=== PATIENT | male | born 1940 | race American Indian/Alaskan Native ===

== ENCOUNTER 2016-08-01 13:23 | Emergency (ER) | payer OTHER, MEDICARE ==
[2016-08-01] MEDS ORDERED: NACL 0.9% 1000 ML 1,000 ML IV ONE (14:04)
--- NOTE | 2016-08-01 14:21 | Emergency Department Report ---
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 Previous Visits for Alcohol Intoxication?: Yes Recent Trauma: Yes Associated Symptoms: denies: nausea, vomiting, syncope, seizure, diaphoresis, tremors, abdominal pain, hematemesis, melena, depression, suicidality Treatments Prior to Arrival: none - Related Data Previous Rx's Medication Instructions Recorded Last Taken Type amLODIPine [Norvasc] 10 mg PO DAILY #30 tab 05/09/14 Unknown Rx cloNIDine [Catapres] 0.1 mg PO BID #10 tablet 05/09/14 Unknown Rx methOCARBAMOL [Robaxin] 500 mg PO BID #14 tab 05/09/14 Unknown Rx traMADol [Ultram 50 MG tab] 50 mg PO Q6HR PRN #14 tablet 05/09/14 Unknown Rx Ibuprofen [Motrin 600 MG tab] 600 mg PO Q8H PRN #30 tablet 02/15/16 Unknown Rx Allergies Allergy/AdvReac Type Severity Reaction Status Date / Time No Known Allergies Allergy Unverified 05/09/14 10:04 ED Review of Systems ROS: Stated complaint: FALL/MOUTH INJURY Other details as noted in HPI Comment: Unobtainable due to pts medical conditions ED Past Medical Hx - Past Medical History Hx Hypertension: Yes Hx Arthritis: Yes - Surgical History Additional Surgical History: Blood Clot x 15 yrs right leg - Social History Smoking Status: Never Smoker Substance Use Type: Alcohol - Medications Home Medications: Home Medications Medication Instructions Recorded Confirmed Last Taken Type amLODIPine [Norvasc] 10 mg PO DAILY #30 tab 05/09/14 Unknown Rx cloNIDine [Catapres] 0.1 mg PO BID #10 tablet 05/09/14 Unknown Rx methOCARBAMOL [Robaxin] 500 mg PO BID #14 tab 05/09/14 Unknown Rx traMADol [Ultram 50 MG tab] 50 mg PO Q6HR PRN #14 tablet 05/09/14 Unknown Rx Ibuprofen [Motrin 600 MG tab] 600 mg PO Q8H PRN #30 tablet 02/15/16 Unknown Rx ED Physical Exam - General Limitations: Altered Mental Status General appearance: appears intoxicated - Head Head exam: Present: atraumatic, normocephalic - Eye Eye exam: Present: normal appearance - ENT ENT exam: Present: other (two missing incisor / minor bleeding in the mouth) - Neck Neck exam: Present: normal inspection - Respiratory Respiratory exam: Present: normal lung sounds bilaterally. Absent: respiratory distress - Cardiovascular Cardiovascular Exam: Present: regular rate, normal rhythm. Absent: systolic murmur, diastolic murmur, rubs, gallop - GI/Abdominal GI/Abdominal exam: Present: soft, normal bowel sounds - Rectal Rectal exam: Present: deferred - Extremities Exam Extremities exam: Present: normal inspection - Back Exam Back exam: Present: normal inspection - Neurological Exam Neurological exam: Present: altered - Skin Skin exam: Present: warm, dry, intact, normal color. Absent: rash ED Course Vital Signs 08/01/16 08/01/16 08/01/16 13:44 14:37 14:41 Temperature 98.2 F 98.4 F Pulse Rate 79 80 Respiratory 16 18 Rate Blood Pressure 139/80 Blood Pressure 140/80 [Left] O2 Sat by Pulse 95 99 97 Oximetry 08/01/16 18:44 Temperature 98.0 F Pulse Rate 78 Respiratory 16 Rate Blood Pressure Blood Pressure 152/80 [Left] O2 Sat by Pulse 100 Oximetry ED Medical Decision Making - Lab Data Result diagrams: 08/01/16 14:13 08/01/16 14:13 Critical care attestation.: If time is entered above; I have spent that time in minutes in the direct care of this critically ill patient, excluding procedure time. ED Disposition Clinical Impression: Alcohol abuse Disposition: DISCHARGED TO HOME OR SELFCARE Is pt being admited?: No Does the pt Need Aspirin: No Condition: Good Instructions: Alcohol Intoxication (ED) Referrals: PRIMARY CARE, [Primary Care Provider] - 3-5 Days Time of Disposition: 19:31
[2016-08-01 14:37] LABS: Basophils % (Auto) 0.7 % (0.0-1.8); Eosinophils % (Auto) 2.4 % (0.0-4.3); Hematocrit 43.8 % (35.5-45.6); Hemoglobin 14.3 gm/dl (11.8-15.2); Mean Corpuscular HGB Conc 33 % (32-34); Mean Corpuscular Hemoglobin 30 pg (28-32); Mean Corpuscular Volume 91 fl (84-94); Platelet Count 205 K/mm3 (140-440); Red Blood Count 4.84 M/mm3 (3.65-5.03); Red Cell Distribution Width 13.4 % (13.2-15.2); White Blood Count 6.8 K/mm3 (4.5-11.0)
[2016-08-01 14:43] LABS: Anion Gap 17 mmol/L; Blood Urea Nitrogen 14 mg/dL (9-20); Calcium 8.6 mg/dL (8.4-10.2); Carbon Dioxide 23 mmol/L (22-30); Chloride 107.2 mmol/L (98-107); Glucose 102 mg/dL (75-100); Potassium 3.5 mmol/L (3.6-5.0); Sodium 144 mmol/L (137-145)
--- NOTE | 2016-08-01 14:59 | Cat Scan Report ---
CT HEAD WITHOUT CONTRAST: HISTORY: Alcohol intoxication. TECHNIQUE: Sequential CT images without contrast. FINDINGS: Images obtained show bilateral prominence of the sulci and ventricles. There are no abnormal intra- or extra-axial blood or fluid collections. There are no focal masses or evidence of mass effect. The staley white matter differentiation appears within normal limits. Regions of periventricular decreased attenuation are consistent with microangiopathic ischemic disease. The posterior fossa structures including the fourth ventricle, cerebellum, and brainstem appear normal. IMPRESSION: Evidence of atrophy and microangiopathic ischemic disease. No acute intracranial process noted.
[2016-08-01] MEDS ORDERED: VITAMIN B-1 100 MG, FOLVITE 1 MG, INFUVITE 10 ML in NACL 0.9% 1000 ML 1,000 ML IV ONE (15:30)
[2016-08-01 17:59] LABS: Urine Drugs of Abuse Note Disclamer
[2016-08-01 18:11] LABS: Bilirubin,Urine NEG (Negative); Blood,Urine NEG (Negative); Ketones,Urine NEG (Negative); Leukocyte Esterase,Urine NEG (Negative); Mucus,Urine FEW /HPF; Nitrite,Urine NEG (Negative); Protein,Urine <15 mg/dL mg/dL (Negative); RBC,Urine < 1.0 /HPF (0.0-6.0); Urobilinogen,Urine < 2.0 mg/dL (<2.0)
[2016-08-01 20:22] VITALS: BP 180/97
== END 2016-08-01 20:27 | disposition home or self-care (01) ==
LOC: ED 13:23
DX: F10.129 Alcohol abuse with intoxication, unspecified (principal); I10 Essential (primary) hypertension; M19.90 Unspecified osteoarthritis, unspecified site
CPT/HCPCS: 36415; 70450; 80048; 80307; 81001; 85025; 96361; 96365; 96366; 99284; G0480; J3411; J7030; 80320

== ENCOUNTER 2016-09-29 18:45 | Emergency (ER) | payer OTHER, MEDICARE ==
[2016-09-29] MEDS ORDERED: TETRACAINE 0.5% OS STA (18:53)
[2016-09-29] MEDS ORDERED: FUL-GLO OP ONE (18:53)
[2016-09-29 18:54] VITALS: BP 157/100
--- NOTE | 2016-09-29 18:58 | Emergency Department Report ---
Entered by HARPREET ARANGO, acting as scribe for CHARBEL MATTHEWS NP. Chief Complaint: Eye Problems Stated Complaint: EYE RED Time Seen by Provider: 09/29/16 18:51 - HPI History of Present Illness: 75 y/o male presents with left eye redness and pain that started 2 weeks ago. Sx include visual disturbance. Pt endorses tobacco use. - ROS Review of Systems: +left eye pain and redness +visual disturbance - Exam Vital Signs: Vital Signs 09/29/16 18:52 Temperature 98.1 F Pulse Rate 85 Respiratory 20 Rate Blood Pressure 157/100 O2 Sat by Pulse 100 Oximetry Physical Exam: EYES: left eye injection, drainage and lower and upper lid edema MSE screening note: Focused history and physical exam performed. Due to findings the following was ordered: meds, visual acuity ED Disposition for MSE Condition: Stable This documentation as recorded by the scribe,HARPREET ARANGO,accurately reflects the service I personally performed and the decisions made by ,CHARBEL MATTHEWS , GROOVER AND STRIPER OPERATOR.
== END 2016-09-30 06:41 | disposition left against medical advice (07) ==
LOC: ED 18:45
DX: H53.8 Other visual disturbances (principal); H57.12 Ocular pain, left eye; Z53.21 Procedure and treatment not carried out due to patient leaving prior to being seen by health care provider

== ENCOUNTER 2017-04-10 17:57 | Emergency (ER) | payer OTHER, MEDICARE ==
[2017-04-10 20:34] LABS: Basophils % (Auto) 0.8 % (0.0-1.8); Eosinophils # (Auto) 0.2 K/mm3 (0.0-0.4); Eosinophils % (Auto) 2.6 % (0.0-4.3); Hematocrit 47.5 % (35.5-45.6); Hemoglobin 15.8 gm/dl (11.8-15.2); Lymphocytes # (Auto) 2.1 K/mm3 (1.2-5.4); Lymphocytes % (Auto) 35.2 % (13.4-35.0); Mean Corpuscular HGB Conc 33 % (32-34); Mean Corpuscular Hemoglobin 29 pg (28-32); Mean Corpuscular Volume 88 fl (84-94); Monocytes # (Auto) 0.6 K/mm3 (0.0-0.8); Monocytes % (Auto) 10.3 % (0.0-7.3); Platelet Count 187 K/mm3 (140-440); Red Blood Count 5.37 M/mm3 (3.65-5.03); Red Cell Distribution Width 14.1 % (13.2-15.2)
[2017-04-10 20:46] LABS: BUN/Creatinine Ratio 21; Blood Urea Nitrogen 15 mg/dL (9-20); Hemolysis Index 13
--- NOTE | 2017-04-10 20:48 | Emergency Department Report ---
HPI - General Chief Complaint: Medical Clearance Time Seen by Provider: 04/10/17 20:30 - HPI HPI: Rodriguez 13 The patient is a 76-year-old male presenting with chief complaint of intoxication. Per nursing the patient was dropped off by police after he was found to be "too intoxicated." No paperwork was left with the patient and further history of patient's presentation to the police is currently unknown. The patient denies complaints but acknowledges he drank approximately 1 pint of alcohol today Location: Mental state Duration: [See above] Quality: Intoxicated Severity: Moderate Modifying factors: [see above] Context: [see above] Mode of transportation: [not driving] ED Past Medical Hx - Past Medical History Hx Hypertension: Yes Hx Arthritis: Yes - Surgical History Additional Surgical History: Blood Clot x 15 yrs right leg - Family History Family history: no significant - Social History Smoking Status: Current Every Day Smoker Substance Use Type: Alcohol - Medications Home Medications: Home Medications Medication Instructions Recorded Confirmed Last Taken Type amLODIPine [Norvasc] 10 mg PO DAILY #30 tab 05/09/14 04/10/17 Unknown Rx cloNIDine [Catapres] 0.1 mg PO BID #10 tablet 05/09/14 04/10/17 Unknown Rx methOCARBAMOL [Robaxin] 500 mg PO BID #14 tab 05/09/14 04/10/17 Unknown Rx traMADol [Ultram 50 MG tab] 50 mg PO Q6HR PRN #14 tablet 05/09/14 04/10/17 Unknown Rx Ibuprofen [Motrin 600 MG tab] 600 mg PO Q8H PRN #30 tablet 02/15/16 04/10/17 Unknown Rx ED Review of Systems ROS: Stated complaint: DRUNK Other details as noted in HPI Comment: Unobtainable due to pts medical conditions Physical Exam - Physical Exam Vital Signs: Vital Signs 04/10/17 18:37 Temperature 98.9 F Pulse Rate 64 Respiratory 18 Rate Blood Pressure 126/73 Blood Pressure 126/73 [Right] O2 Sat by Pulse 99 Oximetry Physical Exam: GENERAL: The patient is well-developed well-nourished male appearing intoxicated sitting in chair not appear to be in acute distress. Patient is jovial and laughs at times HEENT: Normocephalic. Atraumatic. Extraocular motions are intact. Patient has moist mucous membranes. NECK: Supple. No meningitic signs are noted. Trachea midline CHEST/LUNGS: Clear to auscultation. There is no respiratory distress noted. HEART/CARDIOVASCULAR: Regular. There is no tachycardia. There is no gallop rub or murmur. ABDOMEN: Abdomen is soft, nontender. Patient has normal bowel sounds. There is no abdominal distention. SKIN: There is no rash. There is no edema. There is no diaphoresis. NEURO: The patient is awake, alert, and oriented. The patient is cooperative. The patient has no focal neurologic deficits. The patient has normal speech. Cranial nerves II through XII grossly intact, no drift MUSCULOSKELETAL: There is no evidence of acute injury. ED Course Vital Signs 04/10/17 18:37 Temperature 98.9 F Pulse Rate 64 Respiratory 18 Rate Blood Pressure 126/73 Blood Pressure 126/73 [Right] O2 Sat by Pulse 99 Oximetry - Consultations Consultation #1: 04/10/17 22:47 Nurse Speed notified that the patient may be discharged home only when his alcohol level is below 0.08 or if he has family to assume responsibility for him and pick him up from the emergency department ED Medical Decision Making - Lab Data Result diagrams: 04/10/17 20:12 04/10/17 20:12 - Differential Diagnosis alcohol intoxication Critical care attestation.: If time is entered above; I have spent that time in minutes in the direct care of this critically ill patient, excluding procedure time. ED Disposition Clinical Impression: Alcohol intoxication Disposition: DC-01 TO HOME OR SELFCARE Is pt being admited?: No Does the pt Need Aspirin: No Condition: Stable Instructions: Alcohol Intoxication (ED), Abuse of Alcohol (ED) Additional Instructions: Return to the emergency department immediately should you develop worsening symptoms, fever, inability to tolerate food or liquid or any other concerns. Referrals: KARMA PRIDE MD [Primary Care Provider] - 3-5 Days Time of Disposition: 22:50 (DC home when EtOH <0.08 or to family)
[2017-04-10] MEDS ORDERED: VITAMIN B-1 100 MG, FOLVITE 1 MG, INFUVITE 10 ML, MAGNESIUM SULFATE 2 GM in NACL 0.9% 1... IV ONE (21:00)
[2017-04-10 23:07] LABS: Bilirubin,Urine NEG (Negative); Blood,Urine NEG (Negative); Color,Urine Yellow (Yellow); Mucus,Urine FEW /HPF; Nitrite,Urine NEG (Negative); Protein,Urine <15 mg/dL mg/dL (Negative); Urobilinogen,Urine < 2.0 mg/dL (<2.0)
[2017-04-10 23:15] LABS: Amphetamine Screen,Urine PRESUMPTIVE NEGATIVE; Benzodiazepines Screen,Urine PRESUMPTIVE NEGATIVE; Cannabinoid Screen,Urine PRESUMPTIVE NEGATIVE; Cocaine Screen,Urine PRESUMPTIVE NEGATIVE; Methadone Screen,Urine PRESUMPTIVE NEGATIVE; Opiate Screen,Urine PRESUMPTIVE NEGATIVE
[2017-04-11 14:17] VITALS: BP 153/85
== END 2017-04-11 12:40 | disposition home or self-care (01) ==
LOC: ED 17:57
DX: F10.129 Alcohol abuse with intoxication, unspecified (principal)
CPT/HCPCS: 36415; 80048; 80307; 81001; 85025; 96365; 96366; 99283; G0480; J3411; J3475; J7030; 80320

== ENCOUNTER 2017-11-26 14:43 | Emergency (ER) | payer OTHER, MEDICARE ==
[2017-11-26 15:33] LABS: Basophils % (Auto) 0.6 % (0.0-1.8); Eosinophils # (Auto) 0.1 K/mm3 (0.0-0.4); Eosinophils % (Auto) 2.1 % (0.0-4.3); Hematocrit 41.1 % (35.5-45.6); Hemoglobin 13.8 gm/dl (11.8-15.2); Lymphocytes # (Auto) 1.8 K/mm3 (1.2-5.4); Lymphocytes % (Auto) 30.6 % (13.4-35.0); Mean Corpuscular HGB Conc 34 % (32-34); Mean Corpuscular Hemoglobin 30 pg (28-32); Mean Corpuscular Volume 91 fl (84-94); Monocytes # (Auto) 0.6 K/mm3 (0.0-0.8); Monocytes % (Auto) 9.7 % (0.0-7.3); Platelet Count 228 K/mm3 (140-440); Red Blood Count 4.53 M/mm3 (3.65-5.03); Red Cell Distribution Width 13.3 % (13.2-15.2)
[2017-11-26 15:53] LABS: Alanine Aminotransferase 24 units/L (7-56); BUN/Creatinine Ratio 12; Blood Urea Nitrogen 12 mg/dL (9-20); Calcium 8.8 mg/dL (8.4-10.2); Hemolysis Index 10; INR 1.09 (0.87-1.13)
[2017-11-26 15:54] LABS: Partial Thromboplastin Time 26.4 Sec. (24.2-36.6)
--- NOTE | 2017-11-26 16:14 | Cat Scan Report ---
FINAL REPORT EXAM: CT HEAD/BRAIN WO CON HISTORY: Altered Mental Status History (Reason for Exam) : fall, etoh, face abrasions TECHNIQUE: CT examination of the head without IV contrast PRIORS: None. FINDINGS: Lateral travel med surg rn view demonstrates linear lucency and slight angular deformity in the distal nasal bone. This may reflect fractures. Chronic appearing small cortical infarct with encephalomalacia and volume loss is noted in the medial left occipital lobe. Chronic appearing small lacunar infarct in the anterior left internal capsule region. No acute air-fluid level visualized in the included air-filled sinuses. Bone windows demonstrate no acute fracture. There is ventricular and sulcal prominence compatible with global cerebrocortical atrophy. The brain contains no mass, mass effect, hemorrhage, or acute infarct. There is no extra-axial intracranial bleed, brain bleed, or midline shift. 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 Correlate for acute tenderness
--- NOTE | 2017-11-26 16:20 | Cat Scan Report ---
FINAL REPORT EXAM: CT CERVICAL SPINE WO CON HISTORY: fall, etoh , facial abrasions TECHNIQUE: CT examination of the cervical spine without IV contrast PRIORS: Head CT 11/26/2017 FINDINGS: On frontal metal burrer image, there is nonspecific subtle lucency and irregularity in the right glenoid. This may be superimposition artifact and/or degenerative change. Differential includes fracture in the appropriate clinical setting. Prevertebral soft tissues are without swelling. No evidence of cervical fracture or vertebral compression. Multilevel degenerative changes are present at the vertebral endplates, facet joints, and uncinate joints. Anterolisthesis: C2-3 Retrolisthesis: Trace multilevel Disc narrowing: Multilevel Vertebral endplate, uncinate, and facet degenerative hypertrophic change is associated with multilevel bilateral osseous neural foraminal stenosis. IMPRESSION: Frontal metal burrer view raises suspicion of right glenoid abnormality. Although possibly reflecting superimposition artifact and/or degenerative change, differential includes subtle nondisplaced right glenoid fracture in the appropriate clinical setting. Correlate for tenderness/pain No acute skeletal pathology in the cervical spine Cervical spine multilevel degenerative change, disc narrowing, spondylolisthesis, and neural foraminal stenosis
--- NOTE | 2017-11-26 16:25 | Emergency Department Report ---
ED Altered Mental Status HPI - General Chief Complaint: Altered Mental Status Stated Complaint: HEAD INJURY Time Seen by Provider: 11/26/17 15:06 Source: patient, old records reviewed Mode of arrival: Ambulatory Limitations: No Limitations - History of Present Illness Initial Comments: 76-year-old male with a past medical history arthritis, hypertension, and a blood clot in his leg in the past presents to the hospital altered mental status and fall. Patient admits to alcohol use today and was on his way to get more alcohol when he tripped and fell forward. He presents with abrasions to face. LOC not reported. Patient complains of pain to right knee denies headache, neck pain, chest pain, pain, or shortness of breath. Patient is still fairly lethargic with slurred speech. - Related Data Previous Rx's Medication Instructions Recorded Last Taken Type amLODIPine [Norvasc] 10 mg PO DAILY #30 tab 05/09/14 Unknown Rx cloNIDine [Catapres] 0.1 mg PO BID #10 tablet 05/09/14 Unknown Rx methOCARBAMOL [Robaxin] 500 mg PO BID #14 tab 05/09/14 Unknown Rx traMADol [Ultram 50 MG tab] 50 mg PO Q6HR PRN #14 tablet 05/09/14 Unknown Rx Ibuprofen [Motrin 600 MG tab] 600 mg PO Q8H PRN #30 tablet 02/15/16 Unknown Rx Allergies Allergy/AdvReac Type Severity Reaction Status Date / Time No Known Allergies Allergy Verified 11/26/17 14:49 ED Review of Systems ROS: Stated complaint: HEAD INJURY Other details as noted in HPI Comment: All other systems reviewed and negative ED Past Medical Hx - Past Medical History Hx Hypertension: Yes Hx Arthritis: Yes - Surgical History Additional Surgical History: Blood Clot x 15 yrs right leg - Social History Smoking Status: Unknown if ever smoked Substance Use Type: Alcohol - Medications Home Medications: Home Medications Medication Instructions Recorded Confirmed Last Taken Type amLODIPine [Norvasc] 10 mg PO DAILY #30 tab 05/09/14 04/10/17 Unknown Rx cloNIDine [Catapres] 0.1 mg PO BID #10 tablet 05/09/14 04/10/17 Unknown Rx methOCARBAMOL [Robaxin] 500 mg PO BID #14 tab 05/09/14 04/10/17 Unknown Rx traMADol [Ultram 50 MG tab] 50 mg PO Q6HR PRN #14 tablet 05/09/14 04/10/17 Unknown Rx Ibuprofen [Motrin 600 MG tab] 600 mg PO Q8H PRN #30 tablet 02/15/16 04/10/17 Unknown Rx ED Physical Exam - General Limitations: No Limitations - Other Other exam information: General: Patient lethargic with probable EtOH Head exam: Atraumatic, normocephalic Eyes exam: Normal appearance, pupils equal reactive to light, extraocular movements intact ENT: Moist mucous membrane, multiple missing teeth with blood in the oropharynx. No laceration or active bleeding noted Neck exam: Normal inspection, full range of motion, no meningismus nontender Respiratory exam: Clear to auscultation bilateral, no wheezes, rales, crackles Cardiovascular: Normal rate and rhythm, normal heart sounds Abdomen: Soft, nondistended, and nontender, with normal bowel sounds, no rebound, or guarding Extremity: Full range of motion normal inspection no deformity. No tenderness to knees or hips. No deformity. Back: Normal Inspection, full range of motion, no tenderness Neurologic: Lethargic but answers questions appropriately when stimulated. Sclerae speech. 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 Psychiatric: normal affect, normal mood Skin: Abrasion to nose and face without laceration - Assessment Assessment Interval: Baseline - Level of Consciousness 1a. Level of Consciousness: alert/keenly responsive - LOC Questions 1b. LOC Questions: answers both correctly - LOC Command 1c. LOC Commands: performs tasks correctly - Best Gaze 2. Best Gaze: normal - Visual 3. Visual: no visual loss - Facial Palsy 4. Facial Palsy: normal symmetrical movement - Motor Arm 5b. Motor Arm Right: no drift 5a. Motor Arm Left: no drift - Motor Leg 6a. Motor Leg Left: no drift 6b. Motor Leg Right: no drift - Limb Ataxia 7. Limb Ataxia: absent - Sensory 8. Sensory: normal - Best Language 9. Best Language: no aphasia - Dysarthria 10. Dysarthria: normal - Extinction and Inattention 11. Extinction/Inattention: no abnormality - Scoring Total Score: 0 Stroke Severity: No Stroke Symptoms ED Course Vital Signs 11/26/17 11/26/17 11/26/17 14:49 19:15 19:32 Temperature 99.3 F 98.7 F Pulse Rate 75 69 Respiratory 16 18 18 Rate Blood Pressure 104/64 Blood Pressure 125/63 [Right] O2 Sat by Pulse 92 96 Oximetry 11/26/17 11/26/17 11/26/17 22:53 23:00 23:15 Temperature 98.1 F Pulse Rate 71 Respiratory 16 Rate Blood Pressure 142/78 129/73 Blood Pressure 145/78 [Right] O2 Sat by Pulse 96 94 94 Oximetry 11/26/17 11/26/17 11/27/17 23:30 23:45 00:00 Temperature Pulse Rate Respiratory Rate Blood Pressure 141/74 121/70 131/73 Blood Pressure [Right] O2 Sat by Pulse 94 92 94 Oximetry 11/27/17 11/27/17 11/27/17 00:15 00:30 05:59 Temperature 98.8 F Pulse Rate 87 Respiratory 16 Rate Blood Pressure 128/75 129/73 Blood Pressure 140/88 [Right] O2 Sat by Pulse 97 95 99 Oximetry - Lab Data Result diagrams: 11/26/17 15:14 11/26/17 15:14 Lab Results 11/26/17 11/26/17 11/26/17 Range/Units 15:14 15:14 15:14 WBC 5.8 (4.5-11.0) K/mm3 RBC 4.53 (3.65-5.03) M/mm3 Hgb 13.8 (11.8-15.2) gm/dl Hct 41.1 (35.5-45.6) % MCV 91 (84-94) fl MCH 30 (28-32) pg MCHC 34 (32-34) % RDW 13.3 (13.2-15.2) % Plt Count 228 (140-440) K/mm3 Lymph % (Auto) 30.6 (13.4-35.0) % [place] % (Auto) 9.7 H (0.0-7.3) % Eos % (Auto) 2.1 (0.0-4.3) % Baso % (Auto) 0.6 (0.0-1.8) % Lymph # 1.8 (1.2-5.4) K/mm3 [place] # 0.6 (0.0-0.8) K/mm3 Eos # 0.1 (0.0-0.4) K/mm3 Baso # 0.0 (0.0-0.1) K/mm3 Seg Neutrophils % 57.0 (40.0-70.0) % Seg Neutrophils # 3.3 (1.8-7.7) K/mm3 PT 14.7 (12.2-14.9) Sec. INR 1.09 (0.87-1.13) APTT 26.4 (24.2-36.6) Sec. Sodium 137 (137-145) mmol/L Potassium 3.6 (3.6-5.0) mmol/L Chloride 101.5 (98-107) mmol/L Carbon Dioxide 22 (22-30) mmol/L Anion Gap 17 mmol/L BUN 12 (9-20) mg/dL Creatinine 1.0 (0.8-1.5) mg/dL Estimated GFR > 60 ml/min BUN/Creatinine Ratio 12 % Glucose 103 H (75-100) mg/dL POC Glucose (70-105) Calcium 8.8 (8.4-10.2) mg/dL Magnesium (1.7-2.3) mg/dL Total Bilirubin 0.20 (0.1-1.2) mg/dL AST 22 (5-40) units/L ALT 24 (7-56) units/L Alkaline Phosphatase 64 (35-129) units/L Ammonia (25-60) umol/L Total Creatine Kinase (55-170) units/L CK-MB (CK-2) (0.0-4.0) ng/mL CK-MB (CK-2) Rel Index (0-4) Troponin T < 0.010 (0.00-0.029) ng/mL Total Protein 7.2 (6.3-8.2) g/dL Albumin 4.0 (3.9-5) g/dL Albumin/Globulin Ratio 1.3 % TSH (0.270-4.200) mlU/mL Urine Color (Yellow) Urine Turbidity (Clear) Urine pH (5.0-7.0) Ur Specific [place] (1.003-1.030) Urine Protein (Negative) mg/dL Urine Glucose (UA) (Negative) mg/dL Urine Ketones (Negative) mg/dL Urine Blood (Negative) Urine Nitrite (Negative) Urine Bilirubin (Negative) Urine Urobilinogen (<2.0) mg/dL Ur Leukocyte Esterase (Negative) Urine WBC (Auto) (0.0-6.0) /HPF Urine RBC (Auto) (0.0-6.0) /HPF Salicylates (2.8-20.0) mg/dL Urine Opiates Screen Urine Methadone Screen Acetaminophen (10.0-30.0) ug/mL Ur Barbiturates Screen Ur Phencyclidine Scrn Ur Amphetamines Screen U Benzodiazepines Scrn Urine Cocaine Screen U Marijuana (THC) Screen Drugs of Abuse Note Plasma/Serum Alcohol (0-0.07) % 11/26/17 11/26/17 11/26/17 Range/Units 15:14 15:14 15:14 WBC (4.5-11.0) K/mm3 RBC (3.65-5.03) M/mm3 Hgb (11.8-15.2) gm/dl Hct (35.5-45.6) % MCV (84-94) fl MCH (28-32) pg MCHC (32-34) % RDW (13.2-15.2) % Plt Count (140-440) K/mm3 Lymph % (Auto) (13.4-35.0) % [place] % (Auto) (0.0-7.3) % Eos % (Auto) (0.0-4.3) % Baso % (Auto) (0.0-1.8) % Lymph # (1.2-5.4) K/mm3 [place] # (0.0-0.8) K/mm3 Eos # (0.0-0.4) K/mm3 Baso # (0.0-0.1) K/mm3 Seg Neutrophils % (40.0-70.0) % Seg Neutrophils # (1.8-7.7) K/mm3 PT (12.2-14.9) Sec. INR (0.87-1.13) APTT (24.2-36.6) Sec. Sodium (137-145) mmol/L Potassium (3.6-5.0) mmol/L Chloride (98-107) mmol/L Carbon Dioxide (22-30) mmol/L Anion Gap mmol/L BUN (9-20) mg/dL Creatinine (0.8-1.5) mg/dL Estimated GFR ml/min BUN/Creatinine Ratio % Glucose (75-100) mg/dL POC Glucose (70-105) Calcium (8.4-10.2) mg/dL Magnesium (1.7-2.3) mg/dL Total Bilirubin (0.1-1.2) mg/dL AST (5-40) units/L ALT (7-56) units/L Alkaline Phosphatase (35-129) units/L Ammonia 44.0 (25-60) umol/L Total Creatine Kinase (55-170) units/L CK-MB (CK-2) (0.0-4.0) ng/mL CK-MB (CK-2) Rel Index (0-4) Troponin T (0.00-0.029) ng/mL Total Protein (6.3-8.2) g/dL Albumin (3.9-5) g/dL Albumin/Globulin Ratio % TSH 1.200 (0.270-4.200) mlU/mL Urine Color (Yellow) Urine Turbidity (Clear) Urine pH (5.0-7.0) Ur Specific [place] (1.003-1.030) Urine Protein (Negative) mg/dL Urine Glucose (UA) (Negative) mg/dL Urine Ketones (Negative) mg/dL Urine Blood (Negative) Urine Nitrite (Negative) Urine Bilirubin (Negative) Urine Urobilinogen (<2.0) mg/dL Ur Leukocyte Esterase (Negative) Urine WBC (Auto) (0.0-6.0) /HPF Urine RBC (Auto) (0.0-6.0) /HPF Salicylates < 0.3 L (2.8-20.0) mg/dL Urine Opiates Screen Urine Methadone Screen Acetaminophen (10.0-30.0) ug/mL Ur Barbiturates Screen Ur Phencyclidine Scrn Ur Amphetamines Screen U Benzodiazepines Scrn Urine Cocaine Screen U Marijuana (THC) Screen Drugs of Abuse Note Plasma/Serum Alcohol (0-0.07) % 11/26/17 11/26/17 11/26/17 Range/Units 15:14 15:14 15:14 WBC (4.5-11.0) K/mm3 RBC (3.65-5.03) M/mm3 Hgb (11.8-15.2) gm/dl Hct (35.5-45.6) % MCV (84-94) fl MCH (28-32) pg MCHC (32-34) % RDW (13.2-15.2) % Plt Count (140-440) K/mm3 Lymph % (Auto) (13.4-35.0) % [place] % (Auto) (0.0-7.3) % Eos % (Auto) (0.0-4.3) % Baso % (Auto) (0.0-1.8) % Lymph # (1.2-5.4) K/mm3 [place] # (0.0-0.8) K/mm3 Eos # (0.0-0.4) K/mm3 Baso # (0.0-0.1) K/mm3 Seg Neutrophils % (40.0-70.0) % Seg Neutrophils # (1.8-7.7) K/mm3 PT (12.2-14.9) Sec. INR (0.87-1.13) APTT (24.2-36.6) Sec. Sodium (137-145) mmol/L Potassium (3.6-5.0) mmol/L Chloride (98-107) mmol/L Carbon Dioxide (22-30) mmol/L Anion Gap mmol/L BUN (9-20) mg/dL Creatinine (0.8-1.5) mg/dL Estimated GFR ml/min BUN/Creatinine Ratio % Glucose (75-100) mg/dL POC Glucose (70-105) Calcium (8.4-10.2) mg/dL Magnesium 2.10 (1.7-2.3) mg/dL Total Bilirubin (0.1-1.2) mg/dL AST (5-40) units/L ALT (7-56) units/L Alkaline Phosphatase (35-129) units/L Ammonia (25-60) umol/L Total Creatine Kinase 177 H (55-170) units/L CK-MB (CK-2) 5.0 H (0.0-4.0) ng/mL CK-MB (CK-2) Rel Index 2.8 (0-4) Troponin T (0.00-0.029) ng/mL Total Protein (6.3-8.2) g/dL Albumin (3.9-5) g/dL Albumin/Globulin Ratio % TSH (0.270-4.200) mlU/mL Urine Color (Yellow) Urine Turbidity (Clear) Urine pH (5.0-7.0) Ur Specific [place] (1.003-1.030) Urine Protein (Negative) mg/dL Urine Glucose (UA) (Negative) mg/dL Urine Ketones (Negative) mg/dL Urine Blood (Negative) Urine Nitrite (Negative) Urine Bilirubin (Negative) Urine Urobilinogen (<2.0) mg/dL Ur Leukocyte Esterase (Negative) Urine WBC (Auto) (0.0-6.0) /HPF Urine RBC (Auto) (0.0-6.0) /HPF Salicylates (2.8-20.0) mg/dL Urine Opiates Screen Urine Methadone Screen Acetaminophen < 5.0 L (10.0-30.0) ug/mL Ur Barbiturates Screen Ur Phencyclidine Scrn Ur Amphetamines Screen U Benzodiazepines Scrn Urine Cocaine Screen U Marijuana (THC) Screen Drugs of Abuse Note Plasma/Serum Alcohol 0.28 H (0-0.07) % 11/26/17 11/26/17 11/26/17 Range/Units 18:09 18:11 18:11 WBC (4.5-11.0) K/mm3 RBC (3.65-5.03) M/mm3 Hgb (11.8-15.2) gm/dl Hct (35.5-45.6) % MCV (84-94) fl MCH (28-32) pg MCHC (32-34) % RDW (13.2-15.2) % Plt Count (140-440) K/mm3 Lymph % (Auto) (13.4-35.0) % [place] % (Auto) (0.0-7.3) % Eos % (Auto) (0.0-4.3) % Baso % (Auto) (0.0-1.8) % Lymph # (1.2-5.4) K/mm3 [place] # (0.0-0.8) K/mm3 Eos # (0.0-0.4) K/mm3 Baso # (0.0-0.1) K/mm3 Seg Neutrophils % (40.0-70.0) % Seg Neutrophils # (1.8-7.7) K/mm3 PT (12.2-14.9) Sec. INR (0.87-1.13) APTT (24.2-36.6) Sec. Sodium (137-145) mmol/L Potassium (3.6-5.0) mmol/L Chloride (98-107) mmol/L Carbon Dioxide (22-30) mmol/L Anion Gap mmol/L BUN (9-20) mg/dL Creatinine (0.8-1.5) mg/dL Estimated GFR ml/min BUN/Creatinine Ratio % Glucose (75-100) mg/dL POC Glucose 115 H (70-105) Calcium (8.4-10.2) mg/dL Magnesium (1.7-2.3) mg/dL Total Bilirubin (0.1-1.2) mg/dL AST (5-40) units/L ALT (7-56) units/L Alkaline Phosphatase (35-129) units/L Ammonia (25-60) umol/L Total Creatine Kinase (55-170) units/L CK-MB (CK-2) (0.0-4.0) ng/mL CK-MB (CK-2) Rel Index (0-4) Troponin T (0.00-0.029) ng/mL Total Protein (6.3-8.2) g/dL Albumin (3.9-5) g/dL Albumin/Globulin Ratio % TSH (0.270-4.200) mlU/mL Urine Color Straw (Yellow) Urine Turbidity Clear (Clear) Urine pH 6.0 (5.0-7.0) Ur Specific [place] 1.002 L (1.003-1.030) Urine Protein <15 mg/dl (Negative) mg/dL Urine Glucose (UA) Neg (Negative) mg/dL Urine Ketones Neg (Negative) mg/dL Urine Blood Sm (Negative) Urine Nitrite Neg (Negative) Urine Bilirubin Neg (Negative) Urine Urobilinogen < 2.0 (<2.0) mg/dL Ur Leukocyte Esterase Neg (Negative) Urine WBC (Auto) < 1.0 (0.0-6.0) /HPF Urine RBC (Auto) < 1.0 (0.0-6.0) /HPF Salicylates (2.8-20.0) mg/dL Urine Opiates Screen Presumptive negative Urine Methadone Screen Presumptive negative Acetaminophen (10.0-30.0) ug/mL Ur Barbiturates Screen Presumptive negative Ur Phencyclidine Scrn Presumptive negative Ur Amphetamines Screen Presumptive negative U Benzodiazepines Scrn Presumptive negative Urine Cocaine Screen Presumptive negative U Marijuana (THC) Screen Presumptive negative Drugs of Abuse Note Disclamer Plasma/Serum Alcohol (0-0.07) % - Radiology Data Radiology results: report reviewed FINAL REPORT EXAM: CT HEAD/BRAIN WO CON HISTORY: Altered Mental Status History ( Reason for Exam) : fall, etoh, face abrasions TECHNIQUE: CT examination of the head without IV contrast PRIORS: None. FINDINGS: Lateral train starter view demonstrates linear lucency and slight angular deformity in the distal nasal bone. This may reflect fractures. Chronic appearing small cortical infarct with encephalomalacia and volume loss is noted in the medial left occipital lobe. Chronic appearing small lacunar infarct in the anterior left internal capsule region. No acute air-fluid level visualized in the included air-filled sinuses. Bone windows demonstrate no acute fracture. There is ventricular and sulcal prominence compatible with global cerebrocortical atrophy. The brain contains no mass, mass effect, hemorrhage, or acute infarct. There is no extra-axial intracranial bleed, brain bleed, or midline shift. 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 Correlate for acute tenderness ct head: PRIORS: Head CT 11/26/2017 FINDINGS: On frontal train starter image, there is nonspecific subtle lucency and irregularity in the right glenoid. This may be superimposition artifact and/or degenerative change. Differential includes fracture in the appropriate clinical setting. Prevertebral soft tissues are without swelling. No evidence of cervical fracture or vertebral compression. Multilevel degenerative changes are present at the vertebral endplates, facet joints, and uncinate joints. Anterolisthesis: C2-3 Retrolisthesis: Trace multilevel Disc narrowing: Multilevel Vertebral endplate, uncinate, and facet degenerative hypertrophic change is associated with multilevel bilateral osseous neural foraminal stenosis. IMPRESSION: Frontal train starter view raises suspicion of right glenoid abnormality. Although possibly reflecting superimposition artifact and/or degenerative change, differential includes subtle nondisplaced right glenoid fracture in the appropriate clinical setting. Correlate for tenderness/pain No acute skeletal pathology in the cervical spine Cervical spine multilevel degenerative change, disc narrowing, spondylolisthesis , and neural foraminal stenosis ct face: PRIORS: Head CT 11/26/2017 FINDINGS: Linear lucency distal nasal bone with slight cortical step-off may reflect fracture. Acuity indeterminate. Margins are smooth in this may be chronic. Correlate for tenderness/swelling. The ocular globes are intact as are the retrobulbar soft tissues. The visualized orbit charles are intact. Bone windows reveal no evidence of other fracture. The paranasal sinuses are without fluid level to suggest hemorrhage. The included mastoid air cells and middle ear cavities are clear. IMPRESSION: Slight cortical step-off and lucency in the distal nasal bone, with smooth margins, may reflect chronic fracture. Correlate for tenderness/swelling to exclude acute fracture No other significant finding - Medical Decision Making Patient presents with acute alcohol intoxication with fall without acute injury identified. Tetanus provided. Patient will be discharged once sober and safe for discharge. Signed out to overnight physician Dr. Gaona Incidental right glenoid finding noted on CT cervical spine train starter view. Clinically patient does not have any pain to either shoulder joint and has full range of motion without deformity. I suspect that patient is alcoholic and he has been here in the past for acute alcohol intoxication Unsure if etoch dependent and at risk for withdrawal tremors or seizures. While he is sobering up he would need to be monitored for alcohol withdrawal symptoms. CIWA protocol will be ordered to be initiated as needed. - Differential Diagnosis EtOH, drug abuse, ICH, CVA, encephalopathy Critical Care Time: No Critical care attestation.: If time is entered above; I have spent that time in minutes in the direct care of this critically ill patient, excluding procedure time. ED Disposition Clinical Impression: Fall, Alcohol intoxication, Facial abrasion Disposition: DC-01 TO HOME OR SELFCARE Is pt being admited?: No Does the pt Need Aspirin: No Condition: Stable Instructions: Minor Head Injury (ED), Alcohol Intoxication (ED), Abrasion (ED) Referrals: PRIMARY CARE, [Primary Care Provider] - 3-5 Days [facility] [Outside] - 3-5 Days [facility] [Provider Group] - 3-5 Days Time of Disposition: 20:31 (s/o to Dr Gaona)
[2017-11-26 19:03] LABS: Bilirubin,Urine NEG (Negative); Blood,Urine SM (Negative); Color,Urine Straw (Yellow); Protein,Urine <15 mg/dL mg/dL (Negative); RBC,Urine < 1.0 /HPF (0.0-6.0); Urobilinogen,Urine < 2.0 mg/dL (<2.0); WBC,Urine < 1.0 /HPF (0.0-6.0)
[2017-11-26 19:11] LABS: Amphetamine Screen,Urine PRESUMPTIVE NEGATIVE; Benzodiazepines Screen,Urine PRESUMPTIVE NEGATIVE; Cannabinoid Screen,Urine PRESUMPTIVE NEGATIVE; Cocaine Screen,Urine PRESUMPTIVE NEGATIVE; Methadone Screen,Urine PRESUMPTIVE NEGATIVE; Opiate Screen,Urine PRESUMPTIVE NEGATIVE
[2017-11-26] MEDS ORDERED: BOOSTRIX IM ONE (20:25)
[2017-11-26] MEDS ORDERED: ATIVAN IV PRN ×2 (20:30)
[2017-11-27] MEDS ORDERED: TYLENOL PO ONE (05:54)
[2017-11-27] MEDS ORDERED: TYLENOL ONE (05:59)
[2017-11-27 06:00] VITALS: BP 140/88
== END 2017-11-27 05:59 | disposition home or self-care (01) ==
LOC: ED 14:43
DX: S00.81XA Abrasion of other part of head, initial encounter (principal); R41.82 Altered mental status, unspecified; F10.120 Alcohol abuse with intoxication, uncomplicated; M25.561 Pain in right knee; I10 Essential (primary) hypertension; M19.90 Unspecified osteoarthritis, unspecified site; W18.30XA Fall on same level, unspecified, initial encounter; Y93.89 Activity, other specified; Y92.89 Other specified places as the place of occurrence of the external cause; Y99.8 Other external cause status
CPT/HCPCS: 36415; 70450; 70486; 72125; 80053; 80307; 81001; 82140; 82550; 82553; 82962; 83735; 84443; 84484; 85025; 85610; 85730; 90471; 90715; 93005; 93010; 99285; G0480; 80320

== ENCOUNTER 2017-12-13 13:24 | Emergency (ER) | payer OTHER, MEDICARE ==
[2017-12-13 13:59] VITALS: BP 153/103
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
== END 2017-12-13 20:30 | disposition home or self-care (01) ==
LOC: ED 13:24
DX: G89.29 Other chronic pain (principal); M54.5 Low back pain; M54.2 Cervicalgia; M79.18 Myalgia, other site; I10 Essential (primary) hypertension; M19.90 Unspecified osteoarthritis, unspecified site; F17.200 Nicotine dependence, unspecified, uncomplicated; F10.10 Alcohol abuse, uncomplicated
CPT/HCPCS: 99283

== ENCOUNTER 2018-06-28 06:00 | Emergency (ER) | payer OTHER ==
--- NOTE | 2018-06-28 08:35 | Emergency Department Report ---
ED General Adult HPI - General Chief complaint: Pain General Stated complaint: CRONIC BODY PAIN Source: patient, EMS Mode of arrival: Ambulatory Limitations: No Limitations - History of Present Illness Initial comments: This is a 77-year-old -[place] male who presents to the emergency room with bilateral shoulder and right hip pain. For 5 months. Patient states pain increased last night. Past medical history arthritis, DVT, hypertension, and alcohol abuse. Patient states he went to his kitchen and felt dizzy so he called EMS. Patient states the blood pressure medication for 4-5 months and thinks that may be causing dizziness. States pain is worse with movement. He denies numbness or tingling, swelling, slurred speech, recent fall, paresthesias, or weakness. Onset/Timin -: month(s) Location: upper extremity, lower extremity Radiation: non-radiation Severity scale (0 -10): 7 Quality: aching Consistency: intermittent Improves with: none Worsens with: movement Associated Symptoms: other (vertigo) Treatments Prior to Arrival: NSAID - Related Data Previous Rx's Medication Instructions Recorded Last Taken Type amLODIPine [Norvasc] 10 mg PO DAILY #30 tab 05/09/14 Unknown Rx cloNIDine [Catapres] 0.1 mg PO BID #10 tablet 05/09/14 Unknown Rx methOCARBAMOL [Robaxin] 500 mg PO BID #14 tab 05/09/14 Unknown Rx traMADol [Ultram 50 MG tab] 50 mg PO Q6HR PRN #14 tablet 05/09/14 Unknown Rx Ibuprofen [Motrin 600 MG tab] 600 mg PO Q8H PRN #30 tablet 02/15/16 Unknown Rx Meloxicam [Mobic] 15 mg PO DAILY #10 tablet 12/13/17 Unknown Rx Diclofenac Potassium 50 mg PO TID PRN #20 tablet 06/28/18 Unknown Rx amLODIPine [Norvasc] 5 mg PO DAILY #30 tab 06/28/18 Unknown Rx hydroCHLOROthiazide [HCTZ] 12.5 mg PO QDAY #30 capsule 06/28/18 Unknown Rx traMADol [Ultram 50 MG tab] 50 mg PO Q6HR PRN #12 tablet 06/28/18 Unknown Rx Allergies Allergy/AdvReac Type Severity Reaction Status Date / Time No Known Allergies Allergy Verified 11/26/17 14:49 ED Review of Systems ROS: Stated complaint: CRONIC BODY PAIN Other details as noted in HPI Constitutional: denies: chills, fever Respiratory: denies: cough, shortness of breath, wheezing Cardiovascular: denies: chest pain, palpitations Gastrointestinal: denies: abdominal pain, nausea, diarrhea Musculoskeletal: arthralgia (bilateral shoulders and right hip). denies: back pain, joint swelling Skin: denies: rash, lesions Neurological: denies: headache, weakness, paresthesias Psychiatric: denies: anxiety, depression ED Past Medical Hx - Past Medical History Previous Medical History?: Yes Hx Hypertension: Yes Hx Deep Vein Thrombosis: Yes Hx Arthritis: Yes Hx Psychiatric Treatment: Yes (alcohol abuse) - Surgical History Past Surgical History?: Yes Additional Surgical History: Blood Clot x 15 yrs right leg - Social History Smoking Status: Current Every Day Smoker Substance Use Type: Alcohol - Medications Home Medications: Home Medications Medication Instructions Recorded Confirmed Last Taken Type amLODIPine [Norvasc] 10 mg PO DAILY #30 tab 05/09/14 04/10/17 Unknown Rx cloNIDine [Catapres] 0.1 mg PO BID #10 tablet 05/09/14 04/10/17 Unknown Rx methOCARBAMOL [Robaxin] 500 mg PO BID #14 tab 05/09/14 04/10/17 Unknown Rx traMADol [Ultram 50 MG tab] 50 mg PO Q6HR PRN #14 tablet 05/09/14 04/10/17 Unknown Rx Ibuprofen [Motrin 600 MG tab] 600 mg PO Q8H PRN #30 tablet 02/15/16 04/10/17 Unknown Rx Meloxicam [Mobic] 15 mg PO DAILY #10 tablet 12/13/17 Unknown Rx Diclofenac Potassium 50 mg PO TID PRN #20 tablet 06/28/18 Unknown Rx amLODIPine [Norvasc] 5 mg PO DAILY #30 tab 06/28/18 Unknown Rx hydroCHLOROthiazide [HCTZ] 12.5 mg PO QDAY #30 capsule 06/28/18 Unknown Rx traMADol [Ultram 50 MG tab] 50 mg PO Q6HR PRN #12 tablet 06/28/18 Unknown Rx ED Physical Exam - General Limitations: No Limitations General appearance: alert, in no apparent distress - Respiratory Respiratory exam: Present: normal lung sounds bilaterally. Absent: respiratory distress - Cardiovascular Cardiovascular Exam: Present: regular rate, normal rhythm. Absent: systolic murmur, diastolic murmur, rubs, gallop - GI/Abdominal GI/Abdominal exam: Present: soft, normal bowel sounds - Extremities Exam Extremities exam: Present: normal inspection. Absent: calf tenderness - Expanded Upper Extremity Exam Left Shoulder Exam: Present: crepidus. Absent: full ROM (Limited range of motion secondary pain, painful), tenderness, swelling, abrasion, laceration, ecchymosis, deformity, dislocation, erythema, tenderness over AC joint Upper Arm exam: Present: normal inspection, full ROM Elbow exam: Present: normal inspection, full ROM Forearm Wrist exam: Present: normal inspection, full ROM Hand Wrist exam: Present: normal inspection, full ROM Neuro motor exam: Present: wrist extension intact, thumb opposition intact, laurence mb IP flexion intact, thumb adduction intact, fingers 2-5 abduction intact Vascular: Present: normal capillary refill, radial pulse (+2) Right Shoulder Exam: Present: full ROM (painful limited range of motion,). Absent: tenderness, swelling, abrasion, laceration, ecchymosis, deformity, crepidus, dislocation, erythema, tenderness over AC joint Upper Arm exam: Present: normal inspection, full ROM Elbow exam: Present: normal inspection, full ROM Forearm Wrist exam: Present: normal inspection, full ROM Hand Wrist exam: Present: normal inspection, full ROM Neuro motor exam: Present: wrist extension intact, thumb opposition intact, thumb IP flexion intact, thumb adduction intact, fingers 2-5 abduction intact Neurosensory exam: Present: radial nerve intact, ulnar nerve intact, median nerve intact Vascular: Present: normal capillary refill, radial pulse (2+) - Expanded Lower Extremity Exam Right Hip exam: Present: full ROM. Absent: tenderness, swelling, abrasion, laceration, ecchymosis, deformity, dislocation, erythema, external rotation, internal rotation, shortening, pelvic stability Upper Leg exam: Present: normal inspection, full ROM Knee exam: Present: normal inspection, full ROM Lower Leg exam: Present: normal inspection, full ROM Ankle exam: Present: normal inspection, full ROM Foot/Toe exam: Present: normal inspection, full ROM Neuro vascular tendon exam: Present: no vascular compromise Gait: Positive: observed and limited by pain - Neurological Exam Neurological exam: Present: alert, oriented X3 - Psychiatric Psychiatric exam: Present: normal affect, normal mood - Skin Skin exam: Present: warm, dry, intact, normal color. Absent: rash ED Course Vital Signs 06/28/18 06/28/18 06/28/18 06:01 09:49 09:54 Temperature 98.2 F Pulse Rate 72 74 74 Respiratory 18 20 Rate Blood Pressure 176/108 177/110 Blood Pressure 177/110 [Right] O2 Sat by Pulse 98 Oximetry ED Medical Decision Making - Lab Data Result diagrams: 06/28/18 08:42 06/28/18 08:42 Lab Results 06/28/18 06/28/18 Range/Units 08:42 08:42 WBC 6.6 (4.5-11.0) K/mm3 RBC 5.14 H (3.65-5.03) M/mm3 Hgb 15.4 H (11.8-15.2) gm/dl Hct 45.3 (35.5-45.6) % MCV 88 (84-94) fl MCH 30 (28-32) pg MCHC 34 (32-34) % RDW 14.1 (13.2-15.2) % Plt Count 207 (140-440) K/mm3 Sodium 137 (137-145) mmol/L Potassium 3.7 (3.6-5.0) mmol/L Chloride 98.1 (98-107) mmol/L Carbon Dioxide 27 (22-30) mmol/L Anion Gap 16 mmol/L BUN 10 (9-20) mg/dL Creatinine 0.9 (0.8-1.5) mg/dL Estimated GFR > 60 ml/min BUN/Creatinine Ratio 11 % Glucose 114 H (75-100) mg/dL Calcium 9.3 (8.4-10.2) mg/dL - Radiology Data Radiology results: report reviewed BILATERAL SHOULDERS, 3 VIEWS History: Anterior pain. Findings: Normal bone mineralization. Moderate osteoarthritic changes are identified at the right shoulder. Mild osteoarthritic changes are identified at the left shoulder. No evidence for fracture, dislocation or suspicious bone lesion. Impression: Osteoarthritis. RIGHT HIP, 2 views: History: Hip pain. Severe osteoarthritic changes are identified at the right hip. There is complete or near-complete loss of the joint space. Marginal spurring, subchondral cysts and articular surface sclerosis is identified. No evidence for fracture or bone lesion. IMPRESSION: Severe osteoarthritis of the - Medical Decision Making Patient was examined by me. Blood pressure elevated on arrival and patient is in no acute distress. Obtained a BMP, CBC, x-rays of bilateral shoulders and right hip. All labs are unremarkable. Radiograph dictated by radiologist report reviewed by myself with findings of osteoarthritis. Patient informed of results. Start diclofenac's and tramadol for pain. History of HTN, arthritis, and PVC. Patient off blood pressure medication for 4-5 months. Given norvasc 5 mg po once. Hypertension, start Norvasc 5 mg by mouth daily and hydrochloroth iazide 12.5 mg by mouth daily. Plan discussed with patient to discharge home and treat outpatient. He agrees with ER plan. Patient discharged home in stable condition. Follow up with PCP at the [facility]. Critical care attestation.: If time is entered above; I have spent that time in minutes in the direct care of this critically ill patient, excluding procedure time. ED Disposition Clinical Impression: Right hip pain, Vertigo Shoulder pain, bilateral Qualifiers: Chronicity: acute Qualified Code(s): M25.511 - Pain in right shoulder Osteoarthritis Qualifiers: Osteoarthritis location: multiple joints Osteoarthritis type: primary Qualified Code(s): M15.0 - Primary generalized (osteo)arthritis Hypertension Qualifiers: Hypertension type: essential hypertension Qualified Code(s): I10 - Essential (primary) hypertension Disposition: DC- TO HOME OR SELFCARE Is pt being admited?: No Does the pt Need Aspirin: No Condition: Stable Instructions: Osteoarthritis (ED), Vertigo (ED), Hypertension (ED), Arthralgia (ED) Additional Instructions: Encourage stop smoking to reduce cardiovascular risk. Moderate caffeine consumption is acceptable. Begin and maintain aerobic exercise, with a goal of at least 30 minutes of moderate intensity, dynamic aerobic exercise (walking, jogging, cycling, or swimming) 5 days per week to total 150 minutes as tolerated or recommended by a physician. Take medication daily as prescribed. Follow up with Primary Care Provider in 1 week. Prescriptions: Diclofenac Potassium 50 mg PO TID PRN #20 tablet PRN Reason: Pain, Moderate (4-6) hydroCHLOROthiazide [HCTZ] 12.5 mg PO QDAY #30 capsule amLODIPine [Norvasc] 5 mg PO DAILY #30 tab traMADol [Ultram 50 MG tab] 50 mg PO Q6HR PRN #12 tablet PRN Reason: Pain Referrals: CHELSEA ULLOA MD [Primary Care Provider] - [facility]] - 3-5 Days Time of Disposition: 10:55
[2018-06-28 09:09] LABS: BUN/Creatinine Ratio 11; Blood Urea Nitrogen 10 mg/dL (9-20); Calcium 9.3 mg/dL (8.4-10.2); Hemolysis Index 11
[2018-06-28 09:31] LABS: Hemoglobin 15.4 gm/dl (11.8-15.2); Red Blood Count 5.14 M/mm3 (3.65-5.03)
[2018-06-28 09:32] LABS: Hematocrit 45.3 % (35.5-45.6); Mean Corpuscular HGB Conc 34 % (32-34); Mean Corpuscular Volume 88 fl (84-94); Platelet Count 207 K/mm3 (140-440); Red Cell Distribution Width 14.1 % (13.2-15.2)
[2018-06-28] MEDS ORDERED: NORVASC PO ONE (09:42)
[2018-06-28] MEDS ORDERED: IBUPROFEN PO ONE (09:42)
[2018-06-28 09:49] VITALS: BP 177/110
--- NOTE | 2018-06-28 10:41 | XRay Report ---
BILATERAL SHOULDERS, 3 VIEWS History: Anterior pain. Findings: Normal bone mineralization. Moderate osteoarthritic changes are identified at the right shoulder. Mild osteoarthritic changes are identified at the left shoulder. No evidence for fracture, dislocation or suspicious bone lesion. Impression: Osteoarthritis.
--- NOTE | 2018-06-28 10:42 | XRay Report ---
RIGHT HIP, 2 views: History: Hip pain. Severe osteoarthritic changes are identified at the right hip. There is complete or near-complete loss of the joint space. Marginal spurring, subchondral cysts and articular surface sclerosis is identified. No evidence for fracture or bone lesion. IMPRESSION: Severe osteoarthritis of the
== END 2018-06-28 11:19 | disposition home or self-care (01) ==
LOC: ED 06:00
DX: M25.551 Pain in right hip (principal); M25.511 Pain in right shoulder; M25.512 Pain in left shoulder; I10 Essential (primary) hypertension; R42 Dizziness and giddiness; F17.200 Nicotine dependence, unspecified, uncomplicated; Z86.718 Personal history of other venous thrombosis and embolism
CPT/HCPCS: 36415; 80048; 85027; 99284

== ENCOUNTER 2018-06-28 23:36 | Emergency (ER) | payer MEDICARE, OTHER ==
--- NOTE | 2018-06-29 01:45 | Emergency Department Report ---
ED General Adult HPI - General Chief complaint: Headache Stated complaint: CHEST HEAD PAIN Time Seen by Provider: 06/29/18 01:34 Source: patient, RN notes reviewed, old records reviewed Mode of arrival: Ambulatory Limitations: No Limitations - History of Present Illness Initial comments: This is a 77-year-old gentleman. The patient is a poor historian. He reportedly has a history of hypertension. The patient was seen in this department earlier on yesterday for nonspecific musculoskeletal pain. The patient had a thorough and competent evaluation by the nurse practitioner and was subsequently discharged. Apparently, after discharge, the patient did not have any way of getting home. He took an ambulance to the emergency room. Patient reportedly spoke to multiple members of the nursing staff, asking different questions. The patient asked one nurse how he can get home, and he was offered a bus pass. The patient declined the bus pass. The patient spoke to another nurse, and smiled at her, and told her that he had chronic musculoskeletal pain When I interviewed the patient, the patient is sleeping comfortably on a stretcher. When I speak to him, his history is inconsistent and changes. He first endorses a complaint of chronic right-sided hip pain. It is throbbing and gives him difficulty with walking. It has been present for months. He then states that he has a headache. The patient has difficulty characterizing nature of his headache, and describing exacerbating or relieving factors. He indicated that he felt "dizzy" for the past couple days to weeks, but he wasn't sure if he was off balance. The patient reported no recent surgeries, hospitalizations, he denied leg pain, leg swelling, and he made no statements consistent with DVT or pulmonary embolus risk factors. The patient denied change in vision and pain with swallowing. He denied tinnitus. He made no complaints of vertiginous symptoms. He denied chest pain, abdominal pain, shortness of breath. The patient went to multiple members of the nursing staff asking how he might get home, and was not able to get home on his own, and he thus we registered as a patient. The patient made no complaint of chest pain to this provider. -: unknown Radiation: other Quality: other Consistency: other Improves with: other Worsens with: other Associated Symptoms: other - Related Data Previous Rx's Medication Instructions Recorded Last Taken Type amLODIPine [Norvasc] 10 mg PO DAILY #30 tab 05/09/14 Unknown Rx cloNIDine [Catapres] 0.1 mg PO BID #10 tablet 05/09/14 Unknown Rx methOCARBAMOL [Robaxin] 500 mg PO BID #14 tab 05/09/14 Unknown Rx traMADol [Ultram 50 MG tab] 50 mg PO Q6HR PRN #14 tablet 05/09/14 Unknown Rx Ibuprofen [Motrin 600 MG tab] 600 mg PO Q8H PRN #30 tablet 02/15/16 Unknown Rx Meloxicam [Mobic] 15 mg PO DAILY #10 tablet 12/13/17 Unknown Rx Diclofenac Potassium 50 mg PO TID PRN #20 tablet 06/28/18 Unknown Rx amLODIPine [Norvasc] 5 mg PO DAILY #30 tab 06/28/18 Unknown Rx hydroCHLOROthiazide [HCTZ] 12.5 mg PO QDAY #30 capsule 06/28/18 Unknown Rx traMADol [Ultram 50 MG tab] 50 mg PO Q6HR PRN #12 tablet 06/28/18 Unknown Rx Allergies Allergy/AdvReac Type Severity Reaction Status Date / Time No Known Allergies Allergy Verified 11/26/17 14:49 ED Review of Systems ROS: Stated complaint: CHEST HEAD PAIN Other details as noted in HPI Constitutional: denies: fever Eyes: denies: eye discharge ENT: denies: epistaxis Respiratory: denies: cough Cardiovascular: denies: chest pain Gastrointestinal: denies: vomiting Genitourinary: denies: dysuria Musculoskeletal: arthralgia, myalgia. denies: back pain Skin: denies: lesions Neurological: headache ED Past Medical Hx - Past Medical History Previous Medical History?: Yes Hx Hypertension: Yes Hx Deep Vein Thrombosis: Yes Hx Arthritis: Yes Hx Psychiatric Treatment: Yes (alcohol abuse) - Surgical History Past Surgical History?: Yes Additional Surgical History: Blood Clot x 15 yrs right leg - Social History Smoking Status: Current Some Day Smoker Substance Use Type: Alcohol - Medications Home Medications: Home Medications Medication Instructions Recorded Confirmed Last Taken Type amLODIPine [Norvasc] 10 mg PO DAILY #30 tab 05/09/14 04/10/17 Unknown Rx cloNIDine [Catapres] 0.1 mg PO BID #10 tablet 05/09/14 04/10/17 Unknown Rx methOCARBAMOL [Robaxin] 500 mg PO BID #14 tab 05/09/14 04/10/17 Unknown Rx traMADol [Ultram 50 MG tab] 50 mg PO Q6HR PRN #14 tablet 05/09/14 04/10/17 Unknown Rx Ibuprofen [Motrin 600 MG tab] 600 mg PO Q8H PRN #30 tablet 02/15/16 04/10/17 Unknown Rx Meloxicam [Mobic] 15 mg PO DAILY #10 tablet 12/13/17 Unknown Rx Diclofenac Potassium 50 mg PO TID PRN #20 tablet 06/28/18 Unknown Rx amLODIPine [Norvasc] 5 mg PO DAILY #30 tab 06/28/18 Unknown Rx hydroCHLOROthiazide [HCTZ] 12.5 mg PO QDAY #30 capsule 06/28/18 Unknown Rx traMADol [Ultram 50 MG tab] 50 mg PO Q6HR PRN #12 tablet 06/28/18 Unknown Rx ED Physical Exam - General Limitations: No Limitations General appearance: alert, in no apparent distress - Head Head exam: Present: atraumatic, normocephalic, other (there is no mastoid tenderness. There is no temporal tenderness.) - Eye Eye exam: Present: normal appearance, PERRL, EOMI. Absent: nystagmus - ENT ENT exam: Present: normal exam, normal orophraynx, mucous membranes moist, TM's normal bilaterally, normal external ear exam - Neck Neck exam: Present: normal inspection, full ROM. Absent: tenderness, meningismus - Respiratory Respiratory exam: Present: normal lung sounds bilaterally. Absent: respiratory distress - Cardiovascular Cardiovascular Exam: Present: regular rate, normal rhythm, normal heart sounds. Absent: bradycardia, tachycardia, irregular rhythm, systolic murmur, diastolic murmur, rubs, gallop - GI/Abdominal GI/Abdominal exam: Present: soft. Absent: distended, tenderness, guarding, rebound, rigid, pulsatile mass - Rectal Rectal exam: Present: deferred - Extremities Exam Extremities exam: Present: normal inspection, full ROM, tenderness (there is point tenderness in the right lateral hip.), other (2+ pulses noted in the bilateral upper, lower extremities. Compartments soft. No long bony tenderness. The pelvis is stable.). Absent: calf tenderness - Back Exam Back exam: Present: normal inspection, full ROM. Absent: tenderness, CVA tenderness (R), paraspinal tenderness, vertebral tenderness - Neurological Exam Neurological exam: Present: alert, oriented X3, normal gait (there is no pass pointing. There is normal heel to phelps. There is normal gait.), other (Extraocular movements intact. Tongue midline. No facial droop. Facial sensation intact to light touch in the V1, V2, V3 distribution bilaterally. 5 and 5 strength in 4 extremities.. Sensation is intact to light touch in 4 extremities.). Absent: motor sensory deficit - Psychiatric Psychiatric exam: Present: flat affect - Skin Skin exam: Present: warm, dry, intact, normal color. Absent: rash ED Course Vital Signs 06/28/18 06/28/18 06/29/18 23:43 23:52 03:30 Temperature 97.6 F 98 F Pulse Rate 85 69 Respiratory 18 15 Rate Blood Pressure 195/110 Blood Pressure 168/92 176/99 [Right] O2 Sat by Pulse 98 97 Oximetry - Reevaluation(s) Reevaluation #1: 06/29/18 03:20 Differential diagnosis, including but not limited to: Secondary gain, migraine headache, tension headache, cluster headache, intracranial lesion, chronic hip arthritis Assessment and plan: 77-year-old gentleman with multiple nonspecific and varying complaints. I suspect that the patient is endorsing these complaints as he does not feel comfortable going home, or he does not have a place to get home to. Objectively speaking his physical examination is unremarkable, and he has a nonfocal neurologic examination. The patient has no obvious fracture or dislocation on his affected right lower extremity and he walks with a slow but steady gait. Highly doubt acute process at this time. Suspect the patient will benefit from patient case manager to evaluation. Screening laboratory studies have been requested. CT scan of the brain has been ordered. I highly doubt stroke or TIA, given the inconsistent and varying nature of the patient's symptoms. We will obtain CT scan of the brain, and angiogram of the head and neck. Reevaluation #2: 06/29/18 05:15 Patient resting comfortably for hours, without clinical decompensation. CT scan of the brain, angiogram of the head and neck negative for acute disease. Reevaluation #3: 06/29/18 05:20 Urinalysis is negative for acute disease. The patient does not appear to have an emergent medical condition at this time. The patient will be discharged medically from the emergency room, but he will remain pending a case management evaluation, for placement. ED Medical Decision Making - Lab Data Result diagrams: 06/29/18 02:22 06/29/18 02:22 Vital Signs 06/28/18 06/28/18 23:43 23:52 Temperature 97.6 F Pulse Rate 85 Respiratory 18 Rate Blood Pressure 195/110 Blood Pressure 168/92 [Right] O2 Sat by Pulse 98 Oximetry Lab Results 06/29/18 06/29/18 06/29/18 Range/Units 02:22 02:22 02:22 WBC 10.1 (4.5-11.0) K/mm3 RBC 5.42 H (3.65-5.03) M/mm3 Hgb 15.9 H (11.8-15.2) gm/dl Hct 48.3 H (35.5-45.6) % MCV 89 (84-94) fl MCH 29 (28-32) pg MCHC 33 (32-34) % RDW 14.3 (13.2-15.2) % Plt Count 185 (140-440) K/mm3 Lymph % (Auto) 13.9 (13.4-35.0) % Millard % (Auto) 7.6 H (0.0-7.3) % Eos % (Auto) 2.5 (0.0-4.3) % Baso % (Auto) 0.7 (0.0-1.8) % Lymph # 1.4 (1.2-5.4) K/mm3 Millard # 0.8 (0.0-0.8) K/mm3 Eos # 0.3 (0.0-0.4) K/mm3 Baso # 0.1 (0.0-0.1) K/mm3 Seg Neutrophils % 75.3 H (40.0-70.0) % Seg Neutrophils # 7.6 (1.8-7.7) K/mm3 PT 14.2 (12.2-14.9) Sec. INR 1.04 (0.87-1.13) APTT 24.6 (24.2-36.6) Sec. Thrombin Time 16.1 (15.1-19.6) Sec. Lactic Acid (0.7-2.0) mmol/L Magnesium (1.7-2.3) mg/dL Total Creatine Kinase (55-170) units/L Salicylates < 0.3 L (2.8-20.0) mg/dL Plasma/Serum Alcohol (0-0.07) % 06/29/18 06/29/18 06/29/18 Range/Units 02:22 02:22 02:22 WBC (4.5-11.0) K/mm3 RBC (3.65-5.03) M/mm3 Hgb (11.8-15.2) gm/dl Hct (35.5-45.6) % MCV (84-94) fl MCH (28-32) pg MCHC (32-34) % RDW (13.2-15.2) % Plt Count (140-440) K/mm3 Lymph % (Auto) (13.4-35.0) % Millard % (Auto) (0.0-7.3) % Eos % (Auto) (0.0-4.3) % Baso % (Auto) (0.0-1.8) % Lymph # (1.2-5.4) K/mm3 Millard # (0.0-0.8) K/mm3 Eos # (0.0-0.4) K/mm3 Baso # (0.0-0.1) K/mm3 Seg Neutrophils % (40.0-70.0) % Seg Neutrophils # (1.8-7.7) K/mm3 PT (12.2-14.9) Sec. INR (0.87-1.13) APTT (24.2-36.6) Sec. Thrombin Time (15.1-19.6) Sec. Lactic Acid 1.50 (0.7-2.0) mmol/L Magnesium 2.00 (1.7-2.3) mg/dL Total Creatine Kinase 254 H (55-170) units/L Salicylates (2.8-20.0) mg/dL Plasma/Serum Alcohol < 0.01 (0-0.07) % - EKG Data Interpretation: unchanged when compared t (11/26/2017) 06/29/18 03:19 This is a normal sinus, 69 bpm, left axis deviation, left ventricular hypertrophy, left anterior fascicular block, borderline first-degree AV block, poor R progression, this is an abnormal EKG, it is not consistent with ST elevation myocardial infarction. - Radiology Data Radiology results: report reviewed, image reviewed X-ray of the chest was negative for acute disease Critical care attestation.: If time is entered above; I have spent that time in minutes in the direct care of this critically ill patient, excluding procedure time. ED Disposition Clinical Impression: Right hip pain, Case management patient Disposition: DC-01 TO HOME OR SELFCARE Is pt being admited?: No Does the pt Need Aspirin: No Condition: Stable Instructions: Arthralgia (ED) Additional Instructions: Rest, avoid heavy lifting, and avoid strenuous physical activities. Continue current outpatient medications. Follow up with a primary care doctor within the next 2-3 weeks. If patient takes metformin, do not take this medication for the next 48 hours. Please follow up with recommendations that were provided to the patient by case management/social work. Take [id number] pain medication as needed for the pain. Return to the emergency room right away with new, worsening or different symptoms. Referrals: PRIMARY CAREMD [Primary Care Provider] - 3-5 Days [facility] [Provider Group] - 3-5 Days [facility] [Provider Group] - 3-5 Days
--- NOTE | 2018-06-29 02:05 | XRay Report ---
PROCEDURE: XR CHEST 1V AP TECHNIQUE: Chest radiograph single view. HISTORY: cough weakness COMPARISONS: None . FINDINGS: Heart: Normal. Mediastinum/Vessels: Normal. Lungs/Pleural space: Lungs are expanded. There are no infiltrates, effusions or pneumothoraces. Ther e are calcified granulomas at the right lung base.. Bony thorax: No acute osseous abnormality. Life support devices: None. IMPRESSION: No acute cardiopulmonary abnormality. This document is electronically signed by Oscar Choudhury MD., June 29 2018 02:03:11 AM ET
[2018-06-29 02:34] LABS: Basophils # (Auto) 0.1 K/mm3 (0.0-0.1); Basophils % (Auto) 0.7 % (0.0-1.8); Eosinophils # (Auto) 0.3 K/mm3 (0.0-0.4); Eosinophils % (Auto) 2.5 % (0.0-4.3); Hematocrit 48.3 % (35.5-45.6); Hemoglobin 15.9 gm/dl (11.8-15.2); Lymphocytes # (Auto) 1.4 K/mm3 (1.2-5.4); Lymphocytes % (Auto) 13.9 % (13.4-35.0); Mean Corpuscular HGB Conc 33 % (32-34); Mean Corpuscular Volume 89 fl (84-94); Monocytes # (Auto) 0.8 K/mm3 (0.0-0.8); Monocytes % (Auto) 7.6 % (0.0-7.3); Platelet Count 185 K/mm3 (140-440); Red Blood Count 5.42 M/mm3 (3.65-5.03); Red Cell Distribution Width 14.3 % (13.2-15.2)
[2018-06-29 02:47] LABS: INR 1.04 (0.87-1.13)
[2018-06-29 02:48] LABS: Partial Thromboplastin Time 24.6 Sec. (24.2-36.6); Thrombin Time 16.1 Sec. (15.1-19.6)
[2018-06-29] MEDS ORDERED: NACL 0.9% 250ML 250 ML IV ONE (03:14)
[2018-06-29 03:42] LABS: Creatine Kinase MB 7.7 ng/mL (0.0-4.0)
[2018-06-29 03:43] LABS: BUN/Creatinine Ratio 13; Blood Urea Nitrogen 10 mg/dL (9-20); Calcium 9.3 mg/dL (8.4-10.2)
[2018-06-29 03:44] LABS: Alanine Aminotransferase 25 units/L (7-56); Albumin 4.2 g/dL (3.9-5); Hemolysis Index 15
--- NOTE | 2018-06-29 04:46 | Cat Scan Report ---
PROCEDURE: CT HEAD/BRAIN WO CON HISTORY: Stroke symptoms FINDINGS: Unenhanced CT of the brain was performed and demonstrates no acute intracranial hemorrhage, extra-axial fluid collection, midline shift or mass effect. The ventricles and basal cisterns are no t effaced. There are mild chronic-appearing small vessel ischemic white matter changes in subcortical and perive ntricular white matter. No acute infarct is seen. MRI may be considered if patient has persistent sym ptomatology. The mastoid air cells and middle ears appear clear. There is no acute sinusitis. IMPRESSION: No acute intracranial hemorrhage This document is electronically signed by Kris De La Cruz MD., June 29 2018 04:43:30 AM ET
--- NOTE | 2018-06-29 04:51 | Cat Scan Report ---
PROCEDURE: CT ANGIO NECK TECHNIQUE: Computerized tomographic angiography of the neck was performed after the IV injection of iodinated nonionic contrast including image processing. The image data was postprocessed using 2-dime nsional multiplanar reformatted (MPR) and 3-dimensional (MIP and/or volume rendered) techniques. CT DOSE LENGTH PRODUCT: 2078.3 mGycm HISTORY: hx fo headache and dizzy COMPARISONS: None . Note: Assessment of carotid artery stenosis is based on measurement of the distal internal carotid a rtery diameter as the denominator for stenosis calculations and the [place] Symptomatic Caroti d Endarterectomy Trial (NASCET) stenosis criteria. FINDINGS: Aortic arch: Normal . Right carotid artery: Normal . Left carotid artery: Normal . Vertebral arteries: Normal . IMPRESSION: Normal Examination . This document is electronically signed by Oscar Choudhury MD., June 29 2018 04:49:37 AM ET
--- NOTE | 2018-06-29 04:57 | Cat Scan Report ---
PROCEDURE: CT ANGIO HEAD TECHNIQUE: Computerized tomographic angiography of the head was performed after the IV injection of iodinated nonionic contrast including image processing. The image data was postprocessed using 2-dim ensional multiplanar reformatted (MPR) and 3-dimensional (MIP and/or volume rendered) techniques. CT DOSE LENGTH PRODUCT: mGycm HISTORY: hx fo headache and dizzy COMPARISONS: None . FINDINGS: Carotid siphon: Normal . Anterior cerebral: Normal . Middle cerebral: Normal . Posterior cerebral: Normal . Vertebral arteries including basilar: Normal . Aneurysms: None . Dural sinuses: Normal. IMPRESSION: Normal Examination . This document is electronically signed by Oscar Choudhury MD., June 29 2018 04:55:08 AM ET
[2018-06-29 05:17] LABS: Bilirubin,Urine NEG (Negative); Blood,Urine NEG (Negative); Color,Urine Yellow (Yellow); Protein,Urine <15 mg/dL mg/dL (Negative); Urobilinogen,Urine < 2.0 mg/dL (<2.0)
[2018-06-29 06:00] VITALS: BP 155/110
[2018-06-29] MEDS ORDERED: HCTZ PO SCH (10:00)
[2018-06-29] MEDS ORDERED: CATAPRES PO SCH (10:00)
[2018-06-29] MEDS ORDERED: NORVASC PO SCH (10:00)
== END 2018-06-29 11:00 | disposition home or self-care (01) ==
LOC: ED 23:36
DX: M25.551 Pain in right hip (principal); I10 Essential (primary) hypertension; R42 Dizziness and giddiness; M19.90 Unspecified osteoarthritis, unspecified site; F17.200 Nicotine dependence, unspecified, uncomplicated; Z86.718 Personal history of other venous thrombosis and embolism
CPT/HCPCS: 36415; 70450; 70496; 70498; 71045; 80053; 81001; 82140; 82375; 82550; 82553; 82962; 83735; 84484; 85025; 85610; 85670; 85730; 93005; 93010; 96360; 99285; G0480; J7050; Q9967; 80320

== ENCOUNTER 2020-03-16 11:29 | Emergency (ER) | payer MEDICARE, OTHER ==
--- NOTE | 2020-03-16 11:54 | Event Note ---
ED Screening Note Date of service: 03/16/20 Time: 11:50 ED Screening Note: 79-year-old -Indian male course states that he has been having blood in his stool when he strains x1 month. Patient has not followed up by any healthcare provider for this complaint. Patient has a history of alcohol abuse and chronic pain. This initial assessment/diagnostic orders/clinical plan/treatment(s) is/are subject to change based on patients health status, clinical progression and re- assessment by fellow clinical providers in the ED. Further treatment and workup at subsequent clinical providers discretion. Patient/guardian urged not to elope from the ED as their condition may be serious if not clinically assessed and managed. Initial orders include:
[2020-03-16 12:27] LABS: Bilirubin,Urine NEG (Negative); Blood,Urine NEG (Negative); Color,Urine Yellow (Yellow); Hyaline Casts,Urine 1 /LPF; Mucus,Urine FEW /HPF; Protein,Urine <15 mg/dL mg/dL (Negative); Urobilinogen,Urine < 2.0 mg/dL (<2.0)
[2020-03-16 12:53] LABS: Basophils % (Auto) 0.7 % (0.0-1.8); Eosinophils # (Auto) 0.2 K/mm3 (0.0-0.4); Eosinophils % (Auto) 3.5 % (0.0-4.3); Hematocrit 41.8 % (35.5-45.6); Hemoglobin 13.8 gm/dl (11.8-15.2); Lymphocytes # (Auto) 1.9 K/mm3 (1.2-5.4); Lymphocytes % (Auto) 27.7 % (13.4-35.0); Mean Corpuscular HGB Conc 33 % (32-34); Mean Corpuscular Volume 89 fl (84-94); Monocytes # (Auto) 0.6 K/mm3 (0.0-0.8); Monocytes % (Auto) 9.4 % (0.0-7.3); Platelet Count 213 K/mm3 (140-440); Red Blood Count 4.72 M/mm3 (3.65-5.03); Red Cell Distribution Width 13.3 % (13.2-15.2)
[2020-03-16 13:21] LABS: Alanine Aminotransferase 12 units/L (7-56); Albumin 4.4 g/dL (3.9-5); BUN/Creatinine Ratio 14; Blood Urea Nitrogen 14 mg/dL (9-20); Calcium 9.7 mg/dL (8.4-10.2); Hemolysis Index 9
--- NOTE | 2020-03-16 16:42 | Emergency Department Report ---
ED GI Bleed HPI - General Chief complaint: GI Bleed Stated complaint: BLOOD IN STOOL Time Seen by Provider: 03/16/20 16:33 Source: patient Mode of arrival: Ambulatory Limitations: No Limitations - History of Present Illness Initial comments: Chief complaint: Blood in stool HPI this is a 79-year-old male history of hypertension, alcohol dependence and D VT who presents with bloody stools for the past 1 month. Patient's had hard large firm stools. Patient has brown stool streaked with blood intermittently. He denies any pain. The hard stools causes him to strain. No previous history of hemorrhoids. No previous history of GI bleed. Patient has been noncompliant with blood pressure medicine for over 2 weeks. He has run out of his blood pressure medications. He does not have a PCP. Patient is currently comfortable. Denies any pain. MD complaint: blood streaked stool -: Gradual, month(s) (one month) Quality: painless Consistency: intermittent, now resolved Worsens with: bowel movement Context: other (No previous history) - Related Data Previous Rx's Medication Instructions Recorded Last Taken Type amLODIPine 10 mg PO DAILY #30 tab 05/09/14 Unknown Rx cloNIDine [Catapres] 0.1 mg PO BID #10 tablet 05/09/14 Unknown Rx methOCARBAMOL [Robaxin] 500 mg PO BID #14 tab 05/09/14 Unknown Rx traMADoL [Ultram 50 MG tab] 50 mg PO Q6HR PRN #14 tablet 05/09/14 Unknown Rx Ibuprofen [Motrin 600 MG tab] 600 mg PO Q8H PRN #30 tablet 02/15/16 Unknown Rx Meloxicam [Mobic] 15 mg PO DAILY #10 tablet 12/13/17 Unknown Rx Diclofenac Potassium 50 mg PO TID PRN #20 tablet 06/28/18 Unknown Rx amLODIPine 5 mg PO DAILY #30 tab 06/28/18 Unknown Rx hydroCHLOROthiazide [HCTZ] 12.5 mg PO QDAY #30 capsule 06/28/18 Unknown Rx traMADoL [Ultram 50 MG tab] 50 mg PO Q6HR PRN #12 tablet 06/28/18 Unknown Rx Naproxen 500 mg PO Q12H PRN #15 tablet 06/21/19 Unknown Rx traMADoL [Ultram 50 MG tab] 50 mg PO Q6HR PRN #15 tablet 08/20/19 Unknown Rx Docusate Sodium [Colace] 100 mg PO BID 7 Days #14 capsule 03/16/20 Unknown Rx amLODIPine 5 mg PO DAILY #90 tab 03/16/20 Unknown Rx hydroCHLOROthiazide [HCTZ] 25 mg PO QDAY #90 tablet 03/16/20 Unknown Rx Allergies Allergy/AdvReac Type Severity Reaction Status Date / Time No Known Allergies Allergy Verified 03/16/20 11:34 ED Review of Systems ROS: Stated complaint: BLOOD IN STOOL Other details as noted in HPI Comment: All other systems reviewed and negative Constitutional: denies: fever, malaise Respiratory: denies: cough Cardiovascular: denies: chest pain Gastrointestinal: denies: abdominal pain, nausea, vomiting, diarrhea ED Past Medical Hx - Past Medical History Previous Medical History?: Yes Hx Hypertension: Yes Hx Deep Vein Thrombosis: Yes Hx Arthritis: Yes Hx Psychiatric Treatment: Yes (alcohol abuse) - Surgical History Past Surgical History?: Yes Additional Surgical History: Blood Clot x 15 yrs right leg - Social History Smoking Status: Never Smoker Substance Use Type: None - Medications Home Medications: Home Medications Medication Instructions Recorded Confirmed Last Taken Type amLODIPine 10 mg PO DAILY #30 tab 05/09/14 04/10/17 Unknown Rx cloNIDine [Catapres] 0.1 mg PO BID #10 tablet 05/09/14 04/10/17 Unknown Rx methOCARBAMOL [Robaxin] 500 mg PO BID #14 tab 05/09/14 04/10/17 Unknown Rx traMADoL [Ultram 50 MG tab] 50 mg PO Q6HR PRN #14 tablet 05/09/14 04/10/17 Unknown Rx Ibuprofen [Motrin 600 MG tab] 600 mg PO Q8H PRN #30 tablet 02/15/16 04/10/17 Unknown Rx Meloxicam [Mobic] 15 mg PO DAILY #10 tablet 12/13/17 Unknown Rx Diclofenac Potassium 50 mg PO TID PRN #20 tablet 06/28/18 Unknown Rx amLODIPine 5 mg PO DAILY #30 tab 06/28/18 Unknown Rx hydroCHLOROthiazide [HCTZ] 12.5 mg PO QDAY #30 capsule 06/28/18 Unknown Rx traMADoL [Ultram 50 MG tab] 50 mg PO Q6HR PRN #12 tablet 06/28/18 Unknown Rx Naproxen 500 mg PO Q12H PRN #15 tablet 06/21/19 Unknown Rx traMADoL [Ultram 50 MG tab] 50 mg PO Q6HR PRN #15 tablet 08/20/19 Unknown Rx Docusate Sodium [Colace] 100 mg PO BID 7 Days #14 capsule 03/16/20 Unknown Rx amLODIPine 5 mg PO DAILY #90 tab 03/16/20 Unknown Rx hydroCHLOROthiazide [HCTZ] 25 mg PO QDAY #90 tablet 03/16/20 Unknown Rx ED Physical Exam - General Limitations: No Limitations General appearance: alert, in no apparent distress, other (Appears well appears comfortable) - Head Head exam: Present: atraumatic, normocephalic - Eye Eye exam: Present: normal appearance - ENT ENT exam: Present: mucous membranes moist - Neck Neck exam: Present: normal inspection, full ROM - Respiratory Respiratory exam: Present: normal lung sounds bilaterally. Absent: respiratory distress, wheezes, rales, rhonchi - Cardiovascular Cardiovascular Exam: Present: regular rate, normal rhythm, normal heart sounds. Absent: systolic murmur, diastolic murmur, rubs, gallop - GI/Abdominal GI/Abdominal exam: Present: soft, normal bowel sounds. Absent: distended, tenderness, guarding, rebound - Rectal Rectal exam: Present: deferred - Extremities Exam Extremities exam: Present: normal inspection - Neurological Exam Neurological exam: Present: alert, oriented X3 - Psychiatric Psychiatric exam: Present: normal affect, normal mood - Skin Skin exam: Present: warm, dry, intact, normal color. Absent: rash ED Course Vital Signs 03/16/20 11:39 Temperature 98.4 F Pulse Rate 60 Respiratory 18 Rate Blood Pressure 196/91 O2 Sat by Pulse 100 Oximetry ED Medical Decision Making - Lab Data Result diagrams: 03/16/20 12:00 03/16/20 12:00 Laboratory Results - last 24 hr 03/16/20 03/16/20 03/16/20 12:00 12:00 Unknown WBC 6.8 RBC 4.72 Hgb 13.8 Hct 41.8 MCV 89 MCH 29 MCHC 33 RDW 13.3 Plt Count 213 Lymph % (Auto) 27.7 Webb % (Auto) 9.4 H Eos % (Auto) 3.5 Baso % (Auto) 0.7 Lymph # (Auto) 1.9 Webb # (Auto) 0.6 Eos # (Auto) 0.2 Baso # (Auto) 0.0 Seg Neutrophils % 58.7 Seg Neutrophils # 4.0 Sodium 142 Potassium 4.1 Chloride 105.1 Carbon Dioxide 27 Anion Gap 14 BUN 14 Creatinine 1.0 Estimated GFR > 60 BUN/Creatinine Ratio 14 Glucose 85 Calcium 9.7 Total Bilirubin < 0.20 AST 15 ALT 12 Alkaline Phosphatase 92 Total Protein 7.1 Albumin 4.4 Albumin/Globulin Ratio 1.6 Urine Color Yellow Urine Turbidity Clear Urine pH 5.0 Ur Specific Newell 1.024 Urine Protein <15 mg/dl Urine Glucose (UA) Neg Urine Ketones Neg Urine Blood Neg Urine Nitrite Neg Urine Bilirubin Neg Urine Urobilinogen < 2.0 Ur Leukocyte Esterase Neg Urine WBC (Auto) 1.0 Urine RBC (Auto) 1.0 U Epithel Cells (Auto) < 1.0 Hyaline Casts 1 Urine Mucus Few - Medical Decision Making 1. Rectal bleeding: H&H within normal limits. I suspect rectal hemorrhoids or anal fissure causing rectal bleeding as a result of constipation. I prescribed Colace. I recommended outpatient colonoscopy. I have provided referral to outpatient PCP. 2. Hypertensive urgency without evidence of endorgan damage. Patient was given prescription for amlodipine hydrochlorothiazide. I strongly recommended outpatient follow-up with her primary care physician. He has not established recent relationship with a in the outpatient setting. I have reviewed labs. CBC chemistry within normal limits. Critical care attestation.: If time is entered above; I have spent that time in minutes in the direct care of this critically ill patient, excluding procedure time. ED Disposition Clinical Impression: Rectal bleeding, Hypertensive urgency Disposition: DC-01 TO HOME OR SELFCARE Is pt being admited?: No Does the pt Need Aspirin: No Condition: Stable Instructions: Rectal Bleeding Prescriptions: amLODIPine 5 mg PO DAILY #90 tab Docusate Sodium [Colace] 100 mg PO BID 7 Days #14 capsule hydroCHLOROthiazide [HCTZ] 25 mg PO QDAY #90 tablet Referrals: CHELSEA ULLOA MD [Staff Physician] - 3-5 Days
[2020-03-16 17:55] VITALS: BP 179/95
== END 2020-03-16 17:55 | disposition home or self-care (01) ==
LOC: ED 11:29
DX: K62.5 Hemorrhage of anus and rectum (principal); I16.0 Hypertensive urgency; I10 Essential (primary) hypertension; M19.90 Unspecified osteoarthritis, unspecified site; Z98.890 Other specified postprocedural states; Z79.899 Other long term (current) drug therapy
CPT/HCPCS: 36415; 80053; 81001; 85025; 99283

== ENCOUNTER 2020-05-10 16:24 | Emergency (ER) | payer OTHER ==
[2020-05-10 16:33] VITALS: BP 184/104
--- NOTE | 2020-05-10 17:11 | Emergency Department Report ---
ED Upper Extremity Inj HPI - General Chief Complaint: Extremity Injury, Upper Stated Complaint: HAND PAIN Time Seen by Provider: 05/10/20 16:34 Source: patient Mode of arrival: Ambulatory Limitations: No Limitations - History of Present Illness Initial Comments: This is a 79-year-old male nontoxic, well nourished in appearance, no acute signs of distress presents to the ED with c/o of right middle finger pain several days. Patient stated that he believes he hit it against the wall. Patient denies any other injuries or trauma. Patient denies any numbness, tingling, fever, chills, nausea, vomiting, chest pain, shortness of breath, headache, stiff neck. Patient denies any joint swelling or joint redness. Patient denies decreased range of motion. Patient denies any allergies. MD Complaint: Injury to:: right, finger -: days(s) Other Extremity Injury: Fingers: Right Other Injuries: none Severity scale (0 -10): 3 Improves With: none Worsens With: none Context: direct blow Associated Symptoms: denies other symptoms. denies: weakness, numbness, neck pain, suspects foreign body, nausea/vomiting, heard/felt popping sensat - Related Data Previous Rx's Medication Instructions Recorded Last Taken Type amLODIPine 10 mg PO DAILY #30 tab 05/09/14 Unknown Rx cloNIDine [Catapres] 0.1 mg PO BID #10 tablet 05/09/14 Unknown Rx methOCARBAMOL [Robaxin] 500 mg PO BID #14 tab 05/09/14 Unknown Rx traMADoL [Ultram 50 MG tab] 50 mg PO Q6HR PRN #14 tablet 05/09/14 Unknown Rx Ibuprofen [Motrin 600 MG tab] 600 mg PO Q8H PRN #30 tablet 02/15/16 Unknown Rx Meloxicam [Mobic] 15 mg PO DAILY #10 tablet 12/13/17 Unknown Rx Diclofenac Potassium 50 mg PO TID PRN #20 tablet 06/28/18 Unknown Rx amLODIPine 5 mg PO DAILY #30 tab 06/28/18 Unknown Rx hydroCHLOROthiazide [HCTZ] 12.5 mg PO QDAY #30 capsule 06/28/18 Unknown Rx traMADoL [Ultram 50 MG tab] 50 mg PO Q6HR PRN #12 tablet 06/28/18 Unknown Rx Naproxen 500 mg PO Q12H PRN #15 tablet 06/21/19 Unknown Rx traMADoL [Ultram 50 MG tab] 50 mg PO Q6HR PRN #15 tablet 08/20/19 Unknown Rx Docusate Sodium [Colace] 100 mg PO BID 7 Days #14 capsule 03/16/20 Unknown Rx amLODIPine 5 mg PO DAILY #90 tab 03/16/20 Unknown Rx hydroCHLOROthiazide [HCTZ] 25 mg PO QDAY #90 tablet 03/16/20 Unknown Rx Allergies Allergy/AdvReac Type Severity Reaction Status Date / Time No Known Allergies Allergy Verified 05/10/20 16:27 ED Review of Systems ROS: Stated complaint: HAND PAIN Other details as noted in HPI Comment: All other systems reviewed and negative Constitutional: denies: chills, fever Eyes: denies: eye pain, eye discharge, vision change ENT: denies: ear pain, throat pain Respiratory: denies: cough, shortness of breath, wheezing Cardiovascular: denies: chest pain, palpitations Endocrine: no symptoms reported Gastrointestinal: denies: abdominal pain, nausea, diarrhea Genitourinary: denies: urgency, dysuria Musculoskeletal: denies: back pain, joint swelling, arthralgia Skin: denies: rash, lesions Neurological: denies: headache, weakness, paresthesias Psychiatric: denies: anxiety, depression Hematological/Lymphatic: denies: easy bleeding, easy bruising ED Past Medical Hx - Past Medical History Hx Hypertension: Yes Hx Deep Vein Thrombosis: Yes Hx Arthritis: Yes Hx Psychiatric Treatment: Yes (alcohol abuse) - Surgical History Additional Surgical History: Blood Clot x 15 yrs right leg - Social History Smoking Status: Never Smoker Substance Use Type: None - Medications Home Medications: Home Medications Medication Instructions Recorded Confirmed Last Taken Type amLODIPine 10 mg PO DAILY #30 tab 05/09/14 04/10/17 Unknown Rx cloNIDine [Catapres] 0.1 mg PO BID #10 tablet 05/09/14 04/10/17 Unknown Rx methOCARBAMOL [Robaxin] 500 mg PO BID #14 tab 05/09/14 04/10/17 Unknown Rx traMADoL [Ultram 50 MG tab] 50 mg PO Q6HR PRN #14 tablet 05/09/14 04/10/17 Unknown Rx Ibuprofen [Motrin 600 MG tab] 600 mg PO Q8H PRN #30 tablet 02/15/16 04/10/17 Unknown Rx Meloxicam [Mobic] 15 mg PO DAILY #10 tablet 12/13/17 Unknown Rx Diclofenac Potassium 50 mg PO TID PRN #20 tablet 06/28/18 Unknown Rx amLODIPine 5 mg PO DAILY #30 tab 06/28/18 Unknown Rx hydroCHLOROthiazide [HCTZ] 12.5 mg PO QDAY #30 capsule 06/28/18 Unknown Rx traMADoL [Ultram 50 MG tab] 50 mg PO Q6HR PRN #12 tablet 06/28/18 Unknown Rx Naproxen 500 mg PO Q12H PRN #15 tablet 06/21/19 Unknown Rx traMADoL [Ultram 50 MG tab] 50 mg PO Q6HR PRN #15 tablet 08/20/19 Unknown Rx Docusate Sodium [Colace] 100 mg PO BID 7 Days #14 capsule 03/16/20 Unknown Rx amLODIPine 5 mg PO DAILY #90 tab 03/16/20 Unknown Rx hydroCHLOROthiazide [HCTZ] 25 mg PO QDAY #90 tablet 03/16/20 Unknown Rx ED Physical Exam - General Limitations: No Limitations General appearance: alert, in no apparent distress - Head Head exam: Present: atraumatic, normocephalic - Eye Eye exam: Present: normal appearance - Neck Neck exam: Present: normal inspection, full ROM - Respiratory Respiratory exam: Absent: respiratory distress - Cardiovascular Cardiovascular Exam: Present: regular rate - Extremities Exam Extremities exam: Present: normal inspection, full ROM, tenderness, normal capillary refill. Absent: joint swelling - Expanded Upper Extremity Exam Right General: Present: normal inspection Shoulder Exam: Present: normal inspection, full ROM. Absent: tenderness, swelling Upper Arm exam: Present: normal inspection, full ROM. Absent: tenderness, swelling Elbow exam: Present: normal inspection, full ROM. Absent: tenderness, swelling Forearm Wrist exam: Present: normal inspection, full ROM. Absent: tenderness, swelling, abrasion, laceration, ecchymosis, deformity, crepidus, dislocation, erythema, tenderness over anatomical snuff box, pain with axial thumb loading Hand Wrist exam: Present: normal inspection, full ROM, tenderness. Absent: swelling, abrasion, laceration, ecchymosis, deformity, crepidus, dislocation, erythema, amputation, nail avulsion, subungual hematoma Hand L/R Back: 1 - Pain here Vascular: Present: normal capillary refill. Absent: vascular compromise (Neurovascular within normal limits) - Back Exam Back exam: Present: normal inspection, full ROM - Neurological Exam Neurological exam: Present: alert, oriented X3, normal gait - Psychiatric Psychiatric exam: Present: normal affect, normal mood - Skin Skin exam: Present: warm, dry, intact, normal color. Absent: rash ED Course Vital Signs 05/10/20 16:31 Temperature 98.0 F Pulse Rate 90 Respiratory 20 Rate Blood Pressure 184/104 O2 Sat by Pulse 97 Oximetry - Reevaluation(s) Reevaluation #1: 05/10/20 17:11 Patient is speaking in full sentences with no signs of distress noted. ED Medical Decision Making - Radiology Data [address] [address] XRay Report Signed Patient: SARAH PEREZ JR, JR MR#: [id number] : 1940 Acct:[id number] Age/Sex: 79 / M ADM Date: 05/10/20 Loc: ED Attending Dr: Ordering Physician: MARGARITA SANTILLAN NP Date of Service: 05/10/20 Procedure(s): XR hand 3+V RT Accession Number(s): [id number] cc: MARGARITA SANTILLAN NP Fluoro Time In Minutes: RIGHT HAND 3 VIEWS INDICATION / CLINICAL INFORMATION: pain COMPARISON: None available. FINDINGS: BONES / JOINT(S): There is mild degenerative change in the thumb interphalang eal joint. There is moderate degenerative change in the fifth PIP joint. There is mild degenerative change in the thumb MCP joint. No fracture or dislocation is seen. SOFT TISSUES: No significant abnormality. ADDITIONAL FINDINGS: None. Signer Name: Aba Adams MD Signed: 05/10/2020 5:21 PM Workstation Name: [id number] Transcribed By: SS Dictated By: Aba Adams MD Electronically Authenticated By: Aba Adams MD Signed Date/Time: 05/10/201720 DD/ 19 TD/TT: - Medical Decision Making This is a 79-year-old male that presents with right middle finger strain. Patient is stable and was examined by me. I referred patient to an orthopedic doctor for further evaluation for possible MRI. X-ray has been obtained and dictated by the radiologist. Patient is notified of the x-ray report with noted by the patient. Patient does have normal range of motion with some tenderness upon palpation and no joint swelling. No ecchymosis. no joint redness or swelling. Not warm to touch. No signs of cellulites present. Patient was instructed to RICE therapy. At time of discharge, the patient does not seem tox ic or ill in appearance. No acute signs of distress noted. Patient agrees to discharge treatment plan of care. No further questions noted by the patient. Critical care attestation.: If time is entered above; I have spent that time in minutes in the direct care of this critically ill patient, excluding procedure time. ED Disposition Clinical Impression: Strain of right middle finger Disposition: DC-01 TO HOME OR SELFCARE Is pt being admited?: No Does the pt Need Aspirin: No Condition: Stable Instructions: RICE Therapy for Routine Care of Injuries, [id number] Additional Instructions: Follow-up with a orthopedic doctor in 3-5 days or if symptoms worsen and continue return to emergency room as soon as possible. Referrals: PRIMARY CARE, [Referring] - 3-5 Days ANA JETER MD [Staff Physician] - 3-5 Days Time of Disposition: 17:29
--- NOTE | 2020-05-10 17:25 | XRay Report ---
RIGHT HAND 3 VIEWS INDICATION / CLINICAL INFORMATION: pain COMPARISON: None available. FINDINGS: BONES / JOINT(S): There is mild degenerative change in the thumb interphalangeal joint. There is mode rate degenerative change in the fifth PIP joint. There is mild degenerative change in the thumb MCP j oint. No fracture or dislocation is seen. SOFT TISSUES: No significant abnormality. ADDITIONAL FINDINGS: None. Signer Name: Aba Adams MD Signed: 05/10/2020 5:21 PM Workstation Name: [id number]
== END 2020-05-10 18:09 | disposition home or self-care (01) ==
LOC: ED 16:24
DX: S56.113A Strain of flexor muscle, fascia and tendon of right middle finger at forearm level, initial encounter (principal); I10 Essential (primary) hypertension; M19.91 Primary osteoarthritis, unspecified site; Z98.890 Other specified postprocedural states; Z86.718 Personal history of other venous thrombosis and embolism; Z79.899 Other long term (current) drug therapy; W22.01XA Walked into wall, initial encounter; Y93.89 Activity, other specified; Y92.89 Other specified places as the place of occurrence of the external cause; Y99.8 Other external cause status

== ENCOUNTER 2020-05-11 20:43 | Emergency (ER) | payer OTHER ==
[2020-05-11] MEDS ORDERED: DIPHtheria,PERTUSSIS(ACELL),TETANUS VACCINE/PF 0.5 ML VIAL IM ONE (21:55)
[2020-05-11] MEDS ORDERED: chlordiazePOXIDE 25 MG CAP PO PRN ×2 (21:55)
[2020-05-11] MEDS ORDERED: LORazepam 2 MG TAB PO PRN ×2 (21:55)
[2020-05-11] MEDS ORDERED: THIAMINE 100 MG, FOLIC ACID 1 MG, MULTIPLE VITAMIN INJ, ADULT 10 ML in SODIUM CHLORIDE ... IV ONE (21:55)
[2020-05-11] MEDS ORDERED: DEXTROSE 50% IN WATER (25GM) 50 ML SYRINGE IV PRN (21:56)
--- NOTE | 2020-05-11 21:57 | Emergency Department Report ---
ED General Adult HPI - General Chief complaint: Alcohol Stated complaint: AMS PUI?: No Time Seen by Provider: 05/11/20 21:50 Source: patient, EMS ( EMS documentation not available at time of chart dictation ), RN notes reviewed, old records reviewed Mode of arrival: Stretcher Limitations: Altered Mental Status, Other (Intoxication) - History of Present Illness Initial comments: The patient was evaluated in the emergency department for symptoms described in the history of present illness. He/she was evaluated in the context of the global COVID-19 pandemic, which necessitated consideration that the patient might be at risk for infection with the virus that causes COVID-19. Institutional protocols and algorithms that pertain to the evaluation of patients at risk for COVID-19 are in a state of rapid change based on infor mation released by regulatory bodies including the CDC and federal and state organizations. These policies and algorithms were followed during the patient's care in the emergency department. Please note that these policies, procedures and recommendations changed on a rapid basis. The patient is a 79-year-old gentleman. He has a history of alcohol dependence. The patient is brought to the hospital by EMS for fall, and alcohol intoxication. The patient himself is sleepy, intoxicated, and not able to provide history. He is arousable, protecting his airway, and not actively belligerent, or combative. It is not known who contacted 911. Patient is intoxicated, therefore, not able to describe the qualitative nature of his symptoms, exacerbating factors, relieving factors, or aggravating factors. No additional history is available at this time. -: unknown Radiation: other Quality: other Consistency: other Improves with: other Worsens with: other Associated Symptoms: other Treatments Prior to Arrival: other - Related Data Previous Rx's Medication Instructions Recorded Last Taken Type amLODIPine 10 mg PO DAILY #30 tab 05/09/14 Unknown Rx cloNIDine [Catapres] 0.1 mg PO BID #10 tablet 05/09/14 Unknown Rx Ibuprofen [Motrin 600 MG tab] 600 mg PO Q8H PRN #30 tablet 02/15/16 Unknown Rx Meloxicam [Mobic] 15 mg PO DAILY #10 tablet 12/13/17 Unknown Rx Diclofenac Potassium 50 mg PO TID PRN #20 tablet 06/28/18 Unknown Rx amLODIPine 5 mg PO DAILY #30 tab 06/28/18 Unknown Rx hydroCHLOROthiazide [HCTZ] 12.5 mg PO QDAY #30 capsule 06/28/18 Unknown Rx Naproxen 500 mg PO Q12H PRN #15 tablet 06/21/19 Unknown Rx Docusate Sodium [Colace] 100 mg PO BID 7 Days #14 capsule 03/16/20 Unknown Rx amLODIPine 5 mg PO DAILY #90 tab 03/16/20 Unknown Rx hydroCHLOROthiazide [HCTZ] 25 mg PO QDAY #90 tablet 03/16/20 Unknown Rx Multivitamin with Folic Acid [[facility] 400 mcg PO QDAY #30 tablet 05/12/20 Unknown Rx One Daily Essential Tablet] Allergies Allergy/AdvReac Type Severity Reaction Status Date / Time No Known Allergies Allergy Verified 05/10/20 16:27 ED Review of Systems ROS: Stated complaint: AMS Other details as noted in HPI Comment: Unobtainable due to pts medical conditions ED Past Medical Hx - Past Medical History Hx Hypertension: Yes Hx Deep Vein Thrombosis: Yes Hx Arthritis: Yes Hx Psychiatric Treatment: Yes (alcohol abuse) - Surgical History Additional Surgical History: Blood Clot x 15 yrs right leg - Social History Smoking Status: Never Smoker Substance Use Type: None - Medications Home Medications: Home Medications Medication Instructions Recorded Confirmed Last Taken Type amLODIPine 10 mg PO DAILY #30 tab 05/09/14 04/10/17 Unknown Rx cloNIDine [Catapres] 0.1 mg PO BID #10 tablet 05/09/14 04/10/17 Unknown Rx Ibuprofen [Motrin 600 MG tab] 600 mg PO Q8H PRN #30 tablet 02/15/16 04/10/17 Unknown Rx Meloxicam [Mobic] 15 mg PO DAILY #10 tablet 12/13/17 Unknown Rx Diclofenac Potassium 50 mg PO TID PRN #20 tablet 06/28/18 Unknown Rx amLODIPine 5 mg PO DAILY #30 tab 06/28/18 Unknown Rx hydroCHLOROthiazide [HCTZ] 12.5 mg PO QDAY #30 capsule 06/28/18 Unknown Rx Naproxen 500 mg PO Q12H PRN #15 tablet 06/21/19 Unknown Rx Docusate Sodium [Colace] 100 mg PO BID 7 Days #14 capsule 03/16/20 Unknown Rx amLODIPine 5 mg PO DAILY #90 tab 03/16/20 Unknown Rx hydroCHLOROthiazide [HCTZ] 25 mg PO QDAY #90 tablet 03/16/20 Unknown Rx Multivitamin with Folic Acid [[facility] 400 mcg PO QDAY #30 tablet 05/12/20 Unknown Rx One Daily Essential Tablet] ED Physical Exam - General Limitations: Other (Intoxication) General appearance: appears intoxicated, obese - Head Head exam: Present: normocephalic, other (Right-sided contusion noted) - Eye Eye exam: Present: normal appearance, PERRL - ENT ENT exam: Present: normal exam, normal orophraynx, mucous membranes moist, no rmal external ear exam - Neck Neck exam: Present: normal inspection. Absent: tenderness, meningismus - Respiratory Respiratory exam: Present: decreased breath sounds. Absent: respiratory distress, wheezes, rales, stridor - Cardiovascular Cardiovascular Exam: Present: regular rate, normal rhythm, normal heart sounds. Absent: bradycardia, tachycardia, irregular rhythm, systolic murmur, diastolic murmur, rubs, gallop - GI/Abdominal GI/Abdominal exam: Present: soft. Absent: distended, tenderness, guarding, rebound, rigid, pulsatile mass - Rectal Rectal exam: Present: deferred - exam: Present: normal inspection External exam: Present: normal external exam - Extremities Exam Extremities exam: Present: other (2+ pulses noted in the bilateral upper and lower extremities. There is no palpable cord. negative Homans sign. Muscular compartments are soft. The pelvis is stable.). Absent: normal inspection (Abrasions noted to bilateral wrists) - Back Exam Back exam: Present: normal inspection. Absent: tenderness, CVA tenderness (R), CVA tenderness (L), paraspinal tenderness, vertebral tenderness - Neurological Exam Neurological exam: Present: altered, other (The patient is sleepy. The patient is arousable. The patient moves 4 extremities spontaneously.) - Skin Skin exam: Present: warm, abrasion ED Course Vital Signs 05/11/20 05/11/20 05/12/20 22:53 23:06 11:00 Temperature 98 F Pulse Rate 83 83 78 Respiratory 18 Rate Blood Pressure 133/85 179/85 Blood Pressure 145/74 [Right] O2 Sat by Pulse 98 Oximetry - Reevaluation(s) Reevaluation #1: 05/11/20 22:43 Differential diagnosis, including but not limited to: Alcohol intoxication, cl osed head injury, cervical spine injury, electrolyte derangement, superficial abrasion Assessment and plan: 79-year-old gentleman who is intoxicated, with a documented history of closed head injury. He is protecting his airway at this time, and breathing spontaneously. Obtain CT scan of the brain and cervical spine. Obtain appropriate laboratory studies. Start alcohol withdrawal protocol, Accu-Cheks, as needed, maintain supportive care, reassess after initial diagnostics have resulted. 05/12/20 01:03 Patient in no acute distress. Laboratory studies unremarkable. CT scan of the brain and cervical spine negative for acute traumatic findings, blood alcohol level is elevated as expected. Urinalysis and EKG pending. 05/12/20 02:50 Resting comfortably. No acute distress. Moving 4 extremities. EKG unremarkable. Awaiting urinalysis. Reevaluation #2: 05/12/20 05:26 Patient has been observed in this emergency room for approximately 9 hours. He is still somewhat intoxicated and impaired. Unfortunately, friends/family is not able to come by and pick him up. Patient will therefore be discharged when he is clinically sober, and able to care for himself independently. care transferred to Dr Enoc Groves to reasses and discharge when clinically sober or when a family/friend can brick picker the patient 05/12/20 21:41 ED Medical Decision Making - Lab Data Result diagrams: 05/11/20 22:08 05/11/20 22:08 Lab Results 05/11/20 05/11/20 Range/Units 22:08 22:08 Hgb 14.5 (11.8-15.2) gm/dl Hct 43.6 (35.5-45.6) % Plt Count 235 (140-440) K/mm3 PT 13.3 (12.2-14.9) Sec. INR 1.02 (0.87-1.13) APTT 28.6 (24.2-36.6) Sec. Vital Signs 05/11/20 23:06 Temperature 98 F Pulse Rate 83 Respiratory 18 Rate Blood Pressure 145/74 [Right] O2 Sat by Pulse 98 Oximetry Lab Results 05/11/20 05/11/20 05/11/20 Range/Units 22:08 22:08 22:08 Hgb (11.8-15.2) gm/dl Hct (35.5-45.6) % Plt Count (140-440) K/mm3 PT 13.3 (12.2-14.9) Sec. INR 1.02 (0.87-1.13) APTT 28.6 (24.2-36.6) Sec. Sodium 141 (137-145) mmol/L Potassium 3.6 (3.6-5.0) mmol/L Chloride 104.1 (98-107) mmol/L Carbon Dioxide 26 (22-30) mmol/L Anion Gap 15 mmol/L BUN 9 (9-20) mg/dL Creatinine 1.0 (0.8-1.3) mg/dL Estimated GFR > 60 ml/min BUN/Creatinine Ratio 9 % Glucose 122 H (75-100) mg/dL Calcium 8.9 (8.4-10.2) mg/dL Magnesium (1.7-2.3) mg/dL Total Bilirubin 0.20 (0.1-1.2) mg/dL AST 24 (5-40) units/L ALT 19 (7-56) units/L Alkaline Phosphatase 81 (35-129) units/L Ammonia 23.0 L (25-60) umol/L Total Creatine Kinase (55-170) units/L Troponin T < 0.010 (0.00-0.029) ng/mL Total Protein 7.5 (6.3-8.2) g/dL Albumin 4.4 (3.9-5) g/dL Albumin/Globulin Ratio 1.4 % TSH (0.270-4.200) mlU/mL Salicylates (2.8-20.0) mg/dL Acetaminophen (10.0-30.0) ug/mL Plasma/Serum Alcohol (0-0.07) % 05/11/20 05/11/20 05/11/20 Range/Units 22:08 22:08 22:08 Hgb (11.8-15.2) gm/dl Hct (35.5-45.6) % Plt Count (140-440) K/mm3 PT (12.2-14.9) Sec. INR (0.87-1.13) APTT (24.2-36.6) Sec. Sodium (137-145) mmol/L Potassium (3.6-5.0) mmol/L Chloride (98-107) mmol/L Carbon Dioxide (22-30) mmol/L Anion Gap mmol/L BUN (9-20) mg/dL Creatinine (0.8-1.3) mg/dL Estimated GFR ml/min BUN/Creatinine Ratio % Glucose (75-100) mg/dL Calcium (8.4-10.2) mg/dL Magnesium (1.7-2.3) mg/dL Total Bilirubin (0.1-1.2) mg/dL AST (5-40) units/L ALT (7-56) units/L Alkaline Phosphatase (35-129) units/L Ammonia (25-60) umol/L Total Creatine Kinase (55-170) units/L Troponin T (0.00-0.029) ng/mL Total Protein (6.3-8.2) g/dL Albumin (3.9-5) g/dL Albumin/Globulin Ratio % TSH 1.660 (0.270-4.200) mlU/mL Salicylates < 0.3 L (2.8-20.0) mg/dL Acetaminophen 5.0 L (10.0-30.0) ug/mL Plasma/Serum Alcohol (0-0.07) % 05/11/20 05/11/20 05/11/20 Range/Units 22:08 22:08 22:08 Hgb 14.5 (11.8-15.2) gm/dl Hct 43.6 (35.5-45.6) % Plt Count 235 (140-440) K/mm3 PT (12.2-14.9) Sec. INR (0.87-1.13) APTT (24.2-36.6) Sec. Sodium (137-145) mmol/L Potassium (3.6-5.0) mmol/L Chloride (98-107) mmol/L Carbon Dioxide (22-30) mmol/L Anion Gap mmol/L BUN (9-20) mg/dL Creatinine (0.8-1.3) mg/dL Estimated GFR ml/min BUN/Creatinine Ratio % Glucose (75-100) mg/dL Calcium (8.4-10.2) mg/dL Magnesium 2.10 (1.7-2.3) mg/dL Total Bilirubin (0.1-1.2) mg/dL AST (5-40) units/L ALT (7-56) units/L Alkaline Phosphatase (35-129) units/L Ammonia (25-60) umol/L Total Creatine Kinase 412 H (55-170) units/L Troponin T (0.00-0.029) ng/mL Total Protein (6.3-8.2) g/dL Albumin (3.9-5) g/dL Albumin/Globulin Ratio % TSH (0.270-4.200) mlU/mL Salicylates (2.8-20.0) mg/dL Acetaminophen (10.0-30.0) ug/mL Plasma/Serum Alcohol 0.34 H (0-0.07) % - EKG Data -: EKG Interpreted by [facility] EKG shows normal: sinus rhythm Rate: normal - EKG Data 05/12/20 02:49 Time of interpretation, 2: 28 AM Sinus rhythm, 78 bpm, this is a left axis deviation, poor R wave progression, left ventricular hypertrophy, QTC 447 ms. This is an abnormal EKG. This is not a STEMI - Radiology Data Radiology results: pending, report reviewed, image reviewed XR chest 1V ap INDICATION / CLINICAL INFORMATION: Altered Mental Status. COMPARISON: 08/20/2019 FINDINGS: SUPPORT DEVICES: None. HEART /PULMONARY VASCULATURE: No significant abnormality. LUNGS / PLEURA: Low lung volumes with streaky perihilar and bibasilar opacities, likely reflecting atelectasis. No sizable pleural effusion. No pneumothorax. ADDITIONAL FINDINGS: No significant additional findings. IMPRESSION: Low lung volumes with probable bibasilar atelectasis. Otherwise, no acute chest process. Signer Name: Howie Miles MD Signed: 05/11/2020 9:22 PM Workstation Name: [id number] CT cervical spine wo con, CT head/brain wo con INDICATION: etoh intox, found down. TECHNIQUE: CT head and cervical spine without contrast. All CT scans at this location are performed using CT dose reduction for ALARA by means of automated exposure control. COMPARISON: 06/29/[address] cervical spine from 11/26/2017 FINDINGS: HEAD: Intracranial: Shipman-white matter differentiation is maintained. No intracranial hemorrhage. No extra axial collection.. Prominent ventricular caliber is most likely due to central volume loss. In a similar to prior.. No herniation. Generalized atrophy. Periventricul ar and centrum semiovale white matter hypoattenuation most consistent with sequela of chronic microvascular disease. Sinuses: Paranasal sinuses and mastoid air cells are essentially clear. Orbits: Mild proptosis. Globes are intact. Calvarium: Small posterior scalp hematoma. No acute fracture. C ERVICAL: Alignment: Normal alignment. Vertebrae: No fracture. Vertebral body heights are preserved. C1 and C2 are congruent. Atlantooccipital joint is maintained. Spondylolysis: Diffuse spondylosis. Multilevel disc osteophyte complexes advanced facet arthropathy. Multilevel high-grade foraminal narrowing. No high-grade osseous spinal canal stenosis. Soft tissues: No prevertebral soft tissue thickening. Additional findings: Mild paraseptal emphysema seen within the lung apices. Small quantity of debris is seen within the esophagus. IMPRESSION: 1. Small posterior scalp hematoma. No acute intracranial abnormality. 2.No cervical spine fracture. Signer Name: Matt Vasquez MD Signed: 05/11/2020 11:45 PM Workstation Name: [id number] Critical care attestation.: If time is entered above; I have spent that time in minutes in the direct care of this critically ill patient, excluding procedure time. ED Disposition Clinical Impression: Wrist abrasion, non-infected Alcohol intoxication Qualifiers: Complication of substance-induced condition: uncomplicated Qualified Code(s): F10.920 - Alcohol use, unspecified with intoxication, uncomplicated Closed head injury Qualifiers: Encounter type: initial encounter Qualified Code(s): S09.90XA - Unspecified injury of head, initial encounter Disposition: DC-01 TO HOME OR SELFCARE Is pt being admited?: No Does the pt Need Aspirin: No Condition: Good Instructions: Binge-Drinking Information, Adult, Head Injury, Adult, [id number], Abrasion, [id number] Additional Instructions: Recommend that patient not drive or operate motor vehicles for the next 6 months, or until cleared to do so by a primary care doctor. Recommend that patient avoid consumption of alcohol and recreational drugs. Recommend that patient follow-up with a primary care doctor within the next week. Take the multivitamin as directed. Wash abrasions with gentle soap and water once every 12-24 hours. Please return to the emergency room right away with new pain, worsened pain, migration of pain, projectile vomiting, change in mental status, confusion, inability to tolerate liquid feeds, new, worsened or different symptoms not present on the initial emergency room evaluation. Prescriptions: Multivitamin with Folic Acid [[facility] One Daily Essential Tablet] 400 mcg PO QDAY #30 tablet Referrals: MARCE PAIGE MD [Primary Care Provider] - 3-5 Days
[2020-05-11 22:26] LABS: Hematocrit 43.6 % (35.5-45.6); Hemoglobin 14.5 gm/dl (11.8-15.2)
--- NOTE | 2020-05-11 22:27 | XRay Report ---
XR chest 1V ap INDICATION / CLINICAL INFORMATION: Altered Mental Status. COMPARISON: 08/20/2019 FINDINGS: SUPPORT DEVICES: None. HEART /PULMONARY VASCULATURE: No significant abnormality. LUNGS / PLEURA: Low lung volumes with streaky perihilar and bibasilar opacities, likely reflecting at electasis. No sizable pleural effusion. No pneumothorax. ADDITIONAL FINDINGS: No significant additional findings. IMPRESSION: Low lung volumes with probable bibasilar atelectasis. Otherwise, no acute chest process. Signer Name: Howie Miles MD Signed: 05/11/2020 10:22 PM Workstation Name: [id number]
[2020-05-11 22:37] LABS: INR 1.02 (0.87-1.13)
[2020-05-11 22:38] LABS: Partial Thromboplastin Time 28.6 Sec. (24.2-36.6)
[2020-05-11 22:48] LABS: Alanine Aminotransferase 19 units/L (7-56); Albumin 4.4 g/dL (3.9-5); BUN/Creatinine Ratio 9; Blood Urea Nitrogen 9 mg/dL (9-20); Calcium 8.9 mg/dL (8.4-10.2); Hemolysis Index 8
[2020-05-11] MEDS: cloNIDine 0.1 MG TAB PO SCH (22:53)
[2020-05-11] MEDS: DOCUSATE SODIUM 100 MG CAP PO SCH (22:55)
[2020-05-11] MEDS ORDERED: MULTIVITAMINS ,THERAPEUTIC TAB PO ONE (23:00)
[2020-05-11] MEDS ORDERED: THIAMINE 100 MG, FOLIC ACID 1 MG in SODIUM CHLORIDE 0.9% 1000 ML 1,000 ML IV ONE (23:00)
--- NOTE | 2020-05-12 00:49 | Cat Scan Report ---
CT cervical spine wo con, CT head/brain wo con INDICATION: etoh intox, found down. TECHNIQUE: CT head and cervical spine without contrast. All CT scans at this location are performed u sing CT dose reduction for ALARA by means of automated exposure control. COMPARISON: 06/29/[address] cervical spine from 11/26/2017 FINDINGS: HEAD: Intracranial: Shipman-white matter differentiation is maintained. No intracranial hemorrhage. No extra a xial collection.. Prominent ventricular caliber is most likely due to central volume loss. In a simil ar to prior.. No herniation. Generalized atrophy. Periventricular and centrum semiovale white matter hypoattenuation most consistent with sequela of chronic microvascular disease. Sinuses: Paranasal sinuses and mastoid air cells are essentially clear. Orbits: Mild proptosis. Globes are intact. Calvarium: Small posterior scalp hematoma. No acute fracture. CERVICAL: Alignment: Normal alignment. Vertebrae: No fracture. Vertebral body heights are preserved. C1 and C2 are congruent. Atlantooccipi miguel ángel joint is maintained. Spondylolysis: Diffuse spondylosis. Multilevel disc osteophyte complexes advanced facet arthropathy. Multilevel high-grade foraminal narrowing. No high-grade osseous spinal canal stenosis. Soft tissues: No prevertebral soft tissue thickening. Additional findings: Mild paraseptal emphysema seen within the lung apices. Small quantity of debris is seen within the esophagus. IMPRESSION: 1. Small posterior scalp hematoma. No acute intracranial abnormality. 2.No cervical spine fracture. Signer Name: Matt Vasquez MD Signed: 05/12/2020 12:45 AM Workstation Name: [id number]
[2020-05-12 02:57] LABS: Bacteria,Urine 1+ /HPF (Negative); Bilirubin,Urine NEG (Negative); Blood,Urine NEG (Negative); Color,Urine Straw (Yellow); Hyaline Casts,Urine 1 /LPF; Protein,Urine <15 mg/dL mg/dL (Negative); Urobilinogen,Urine < 2.0 mg/dL (<2.0); WBC,Urine < 1.0 /HPF (0.0-6.0)
[2020-05-12] MEDS ORDERED: hydroCHLOROthiazide 12.5 MG CAP PO SCH (10:00)
[2020-05-12] MEDS ORDERED: amLODIPine 5 MG TAB PO SCH (10:00)
[2020-05-12] MEDS: cloNIDine 0.1 MG TAB PO SCH (11:00)
[2020-05-12] MEDS: DOCUSATE SODIUM 100 MG CAP PO SCH (11:00)
[2020-05-12 12:35] VITALS: BP 179/85
== END 2020-05-12 14:50 | disposition home or self-care (01) ==
LOC: ED 20:43
DX: S09.90XA Unspecified injury of head, initial encounter (principal); S60.812A Abrasion of left wrist, initial encounter; S60.811A Abrasion of right wrist, initial encounter; F10.129 Alcohol abuse with intoxication, unspecified; I10 Essential (primary) hypertension; M19.91 Primary osteoarthritis, unspecified site; Z98.890 Other specified postprocedural states; Z79.1 Long term (current) use of non-steroidal anti-inflammatories (NSAID); Z79.899 Other long term (current) drug therapy; W19.XXXA Unspecified fall, initial encounter; Y93.89 Activity, other specified; Y92.89 Other specified places as the place of occurrence of the external cause; Y99.8 Other external cause status
CPT/HCPCS: 36415; 70450; 71045; 72125; 80053; 81001; 82140; 82550; 83735; 84443; 84484; 85014; 85018; 85049; 85610; 85730; 90471; 90715; 93005; 96365; 96366; 99285; J3411; J7030; 80320; G0480

== ENCOUNTER 2021-03-11 11:49 | Emergency (ER) | payer OTHER | END 2021-03-12 04:00 | disposition left against medical advice (07) | LOC: ED 11:49 | DX: Z53.21 Procedure and treatment not carried out due to patient leaving prior to being seen by health care provider (principal) ==